=== PATIENT | female | born 1970 | race Caucasian/White ===

== ENCOUNTER 2021-07-08 17:30 | Emergency (ER) | payer OTHER, SELFPAY ==
[2021-07-08 17:45] VITALS: BP 110/69; PULSE 74; RESP 16; TEMP 36.6; O2SAT 97
--- NOTE | 2021-07-08 18:06 | ED.SKABFB ---
HPI - Skin/Abscess/Foreign Bdy General Chief complaint: Skin/Abscess/Foreign Body Stated complaint: spider bite History of Present Illness HPI narrative: The patient, previously mostly healthy, presents with skin eruption. Patient states she has about half week history of painful, itchy eruption on her left gluteal area. Symptoms are mild, slightly worse with sitting or palpation-especially at central scab/crusting. She is concerned that she may have had a spider bite as it began quickly,when seated 4 days ago then. She would like refill of inhaler ; no fever, prior/other rashes, streaking but there is areas of hyperpigmentation/bruising. Related Data Home Medications Medication Instructions Recorded Confirmed albuterol 1 mcg INHALATION PRN PRN 07/08/21 07/08/21 ibuprofen 200 mg PO Q6H PRN 07/08/21 07/08/21 Allergies Allergy/AdvReac Type Severity Reaction Status Date / Time Sulfa (Sulfonamide AdvReac Mild Nausea Verified 07/08/21 18:01 Antibiotics) Review of Systems Review of Systems: General/Constitutional: No weight loss,fever Eyes: N0: Redness,discharge Ears/Nose/Throat: No: Epistaxis,ear discharge Respiratory: Denies: Hemoptysis Gastrointestinal: No Vomiting, Bleeding-rectal Skin: No Lumps, eruption Neurologic: No Focal Weakness,Sz Hematologic: Denies: Petechiae/Purpura Psychiatric: No: Suicida ideationl All Other Systems: Reviewed and Negative PMFSH Comments At time of signature, agree with nursing past medical, surgical, social and family history. There is no relevant family history pertinent to the presenting complaint Exam Narrative: General Appearance: Well nourished, Normocephalic Eye: PERRLA, Conjunctiva clear Ear: External ear normal Nose: Normal nose, Nare clear Mouth/Throat: Normal appearing, Supple Respiratory: Airway patent, No respiratory distress Musculoskeletal: Moves all extremities, Non tender Skin: Warm, Dry; palm-sized area of hyperpigmentation with central maculo papular eruption of left gluteal crease Neurological: A&O x3, Normal affect Course Vital Signs Vital signs: Vital Signs Temperature 97.8 F 07/08/21 17:45 Pulse Rate 74 07/08/21 17:45 Respiratory Rate 16 07/08/21 17:45 Blood Pressure 110/69 07/08/21 17:45 Pulse Oximetry 97 10/28/21 17:45 Temperature 97.8 F 07/08/21 17:45 Pulse Rate 74 07/08/21 17:45 Respiratory Rate 16 07/08/21 17:45 Blood Pressure 110/69 07/08/21 17:45 Pulse Oximetry 97 07/08/21 17:45 Discharge Plan Discharge Clinical Impression: Folliculitis Patient Disposition: Home, Self-Care Condition: Stable Instructions: Cellulitis (ED) Additional Instructions: Take clindamycin with food, antacid and/or probiotic; stop if diarrhea occurs Continue photo log of area Prescriptions: New clindamycin HCl 300 mg capsule 300 mg PO TID Qty: 15 RF: 0 mupirocin 2 % ointment 1 applic TOPICAL TID Qty: 30 RF: 1 albuterol sulfate [Ventolin HFA] 90 mcg/actuation HFA aerosol inhaler 2 puff INHALATION QID PRN (Reason: shortness of breath or wheezing) Qty: 8.5 RF: 1 No Action albuterol 90 mcg/actuation Aerosol 1 mcg INHALATION PRN PRN (Reason: difficulty breathing) RF: 0 ibuprofen 200 mg Tablet 200 mg PO Q6H PRN (Reason: headaches) RF: 0 Follow-up/Referrals: UNKNOWN,DOCTOR [Primary Care Provider] -
== END 2021-07-08 18:15 | disposition home or self-care (01) ==
PROVIDERS: Emergency Provider Emergency Medicine
DX: L73.9 Follicular disorder, unspecified (principal); J45.909 Unspecified asthma, uncomplicated
CPT/HCPCS: 99203; G0463

== ENCOUNTER 2021-11-11 02:22 | Day surgery (SDC) | payer SELFPAY ==
[2021-11-05 14:02] VITALS: BMI 22.7
--- NOTE | 2021-11-05 14:11 | PC.NURSE ---
Report to the Outpatient Waiting Room, entrance under the green pavilion located off [facility], at time 1230 on date 11/11/21. OR Time: 1430. - You and your visitor will be asked a series of questions to screen for COVID 19 for your protection. - A mask is required within the hospital. One visitor will be allowed to accompany the patient into the hospital. Patients visitor will be instructed to remain with patient at all times or leave the building. We will allow the visitor to come back to the postoperative area when patient is ready. Preoperative COVID Testing Requirements: TO E-MAIL COPY OF CARD No COVID Test needed if: (proof is required; if not received patient will have Rapid Test prior to entry) - Patient has received COVID Vaccine at least 14 days prior to procedure date or - Patient has positive COVID test result within last 90 days of surgery date. COVID Test needed if above criteria is not met Patients may have clear liquids (water, carbonated beverages, clear teas, apple juice) until 3 hours prior to surgery with a maximum of 20 ounces. - No food from midnight until time of surgery Take the following medications with a SIP of water the morning of surgery: ALBUTEROL IF NEEDED Medications to discontinue per physician: N/A Date to take last dose: N/A Please no make-up, nail hebrew, hairspray, perfume, deodorant, or body powder the day of surgery. No jewelry (including any body piercings) or valuables the day of surgery, leave them at home. Please take a shower or bath the night before, or the morning of, surgery with an antibacterial soap. Wear comfortable, loose fitting clothing. - Jewelry must be removed prior to entering the operating room. Rings and piercings that are not removed may be cut off. - The hospital will not accept responsibility for valuables. - Please leave all valuables, including medications, at home the day of surgery. If you are going home after surgery, a licensed stunt driver must drive you home. - NO public transportation without another adult. - We recommend that an adult stay with you for 24 hours following discharge. - We also recommend that you do not drive, make important decision, drink alcoholic beverages, or take any drugs that were not prescribed by your health care provider for at least 24 hours after your discharge time. Follow any additional instructions given to you from your surgeon. Telephone instructions given to LEX NUNES and asked if any additional questions and then verbalized understanding. Patient advised to call surgeon office or pre surgery nurse liaison [phone] if any additional questions.
[2021-11-11] VITALS (10 sets, daily range): BP systolic 100–135; BP diastolic 45–75; PULSE 44–63; RESP 10–20; TEMP 35.8–36.7; O2SAT 97–100
--- NOTE | ~2021-11-11 | XR_ITS ---
EXAMINATION: XR surgery orthopedic EXAM DATE: 11/11/2021 11:20 INDICATION: Closed Or Open Reduc Internal Fixation Rt Ring Finger. TECHNIQUE: Fluoroscopy used during right 4th proximal phalangeal fixation performed by Dr. Rizwan Grayson MD. Radiologist was not present for the imaging or procedure. Total fluoroscopic time of 15 5 seconds. The DAP for this procedure was 0.55 mGym2. A total of 4 images sent to PACS from the [facility]. FINDINGS: Images demonstrate a 4th proximal phalangeal shaft fracture in anatomic alignment and posi tion, 2 small screws bridging the fracture site. Correlate with procedure note. IMPRESSION: Fluoroscopy used during right 4th proximal phalangeal ORIF. Reviewed, dictated and finalized at location B. KING SUPERVISOR
--- NOTE | 2021-11-11 07:14 | WPDHPUPDATE1 ---
History and Physical Update Update Date/Time: 11/11/21 07:14 History and Physical has been reviewed, including an updated exam of the patient. There are NO changes in the patient's condition. Risks, benefits, and alternatives have been discussed and questions answered. Patient agrees to proceed with procedure.
--- NOTE | 2021-11-11 08:21 | WPDANESEPPF ---
Anes - Initial Pre Proc Eval Procedure: Operation Date: 11/11/21 09:30 Proposed Procedures p Closed or Open Reduction with Internal Fixation, Fracture Proximal Phalanx of Right Ring Finger - Rizwan Grayson MD Date/Time: 11/11/21 08:21 Surgeon: Rizwan Grayson MD Pre Op Diagnosis: fracture of proximal phalanx right ring finger Patient Data Age: 50 Gender: F Height: 1.69 m Weight: 64.86 kg Allergies Allergy/AdvReac Type Severity Reaction Status Date / Time Sulfa (Sulfonamide AdvReac Mild Nausea Verified 11/11/21 07:54 Antibiotics) Home Medications Medication Instructions Recorded Confirmed Type albuterol sulfate [Ventolin HFA] 2 puff INHALATION QID PRN #8.5 gm 07/08/21 11/05/21 Rx ibuprofen 200 mg PO Q6H PRN 07/08/21 11/05/21 History Patient hx anesthesia problems: post op nausea/vomiting Family hx anesthesia problems: none Results Review: All pre-operative results and documents have been reviewed as part of the pre-operative evaluation. FOR[facility]LY [facility] Past Medical History Medical History (Updated 11/11/21 @ 08:22 by Burt Hein DO) Asthma Hiatal hernia PONV (postoperative nausea and vomiting) Social History Social History Smoking packs per day: 1 Smoking cigarettes per day: 20.0 Years smoked: 30 Smoking pack-years: 30.00 Smoking status: Former smoker Tobacco type: cigarettes Smoking end date: 05/12/19 Alcohol intake: never Substance use: current Substance use type: marijuana Living arrangements: with family Anes - Eval Final PreProcedure Day of Procedure 11/11/21 08:21 Patient weight: normal Heart: regular rate and rhythm Lungs: clear to auscultation and normal air movement Airway: Mallampati scale class II Neurological: alert and oriented Last oral intake: >/= 8 hours ASA classification: III Emergent: no Anesthetic plan: proceed Anesthesia type and monitoring: general GIVS and LMA and standard monitoring Results Review: All pre-operative results and documents have been reviewed as part of the pre-operative evaluation. Informed Consent: The patient's anesthetic plan and its attendant risks and benefits were discussed with the patient/family/POA. Questions were solicited and answers provided to the satisfaction of the patient/family/POA.
[2021-11-11] MEDS: ACETAMINOPHEN 500 MG TABLET 1000 MG PO (08:23)
[2021-11-11] MEDS: LACTATED RINGERS 1,000 ML 30 ML IV CONT ×2 (08:29→11:45)
[2021-11-11] MEDS: SCOPOLAMINE 1.5 MG PATCH TRANSDERM (09:13)
[2021-11-11] MEDS: KETOROLAC 15 MG/ML VIAL (*BKC) IV PUSH (09:13)
[2021-11-11] MEDS: ceFAZolin 2 GM/D5W 50 ML 2 GM/50 ML BAG IVPB (09:49)
--- NOTE | 2021-11-11 12:18 | P.OP_ITS ---
Procedure Note - Detailed Date of Procedure 11/11/21 Pre-op Diagnosis fracture of proximal phalanx right ring finger Post-op Diagnosis Same Procedure Performed Open reduction internal fixation of the closed extra-articular shaft fracture of the proximal phalanx of right ring finger Surgeon Rizwan Grayson MD Health And Wellness Director Luisa Anesthesia General Description of Procedure The right ring finger was marked in the holding area. The patient was then rolled to the operating room where she was placed supine on the operating table. A time-out was held and confirmed. She was given general endotracheal anesthesia. The right upper extremity was prepped and draped in usual fashion. The hand was imaged on the table and the fracture manipulated. This was the 2 fragment spiral fracture without comminution. By closed technique we were not able to satisfactorily reduce it and define the orientation of the fracture lines. For that reason we elected to open. The digit was blocked with 1% lidocaine with epinephrine. The dorsal midline incision was made and the extensor tendon incised down the midline. The fracture lay in part directly under this access point. We were able to do reduction and apply a tenaculum. A 1.5 mm lag screw was placed diagonal to the fracture line this is a 12 mm screw was countersunk and imaged. This stabilized the fracture in excellent position. A 2nd screw was placed roughly parallel. This a bicortical screw measuring 1.3 x 11 mm. The tendon was then repaired with interrupted 5 0 Prolene suture. The site was irrigated out and the skin wound closed with a running 5 0 nylon. No splint was applied. The soft gauze with Coban wrap bandage was applied. The patient was discharged from the operating room in stable condition. She had received Ancef 2 g prior to the surgery the total tourniquet time was 57 minutes, she received Tylenol 1000 mg p.o. and Toradol 15 mg p.o.. about 8 mm of Marcaine 5% plain was also infiltrated. Implants Titanium screws: x2. Estimated Blood Loss 2 Tourniquet Time 57 Drains No Packing No Pathology None sent Complications No immediate complications Condition Stable Disposition PACU
--- NOTE | 2021-11-11 13:03 | SUR.PHASEI ---
PT NOW AWAKE AND ALERT. STATES MODERATE ACHINESS AT 6/10. PT DOES NOT WANT PAIN MEDICINE AT THIS TIME
== END 2021-11-11 15:07 | disposition home or self-care (01) ==
PROVIDERS: Visit Provider Plastic Surgery
PROC: (CPT 26735; principal; 2021-11-11 09:30)
DX: S62.614A Displaced fracture of proximal phalanx of right ring finger, initial encounter for closed fracture (principal); W54.8XXA Other contact with dog, initial encounter; J45.909 Unspecified asthma, uncomplicated; K44.9 Diaphragmatic hernia without obstruction or gangrene; Z79.51 Long term (current) use of inhaled steroids; Z87.891 Personal history of nicotine dependence; F12.90 Cannabis use, unspecified, uncomplicated
CPT/HCPCS: 26735; A9270; C1713; J0690; J1100; J1885; J1940; J2250; J2270; J2405; J2704; J7120

== ENCOUNTER 2021-11-25 14:05 | Outpatient (RCR) | payer SELFPAY ==
--- NOTE | 2021-11-25 15:03 | OTOPEVAL ---
OCCUPATIONAL THERAPY INITIAL EVALUATION REPORT AND DISCHARGE SUMMARY 11/25/21 Kay referred to outpatient hand therapy following a ring finger fracture s/p ORIF. She is only here for 1 visit due to being self pay. Instructed the patient today on active/passive ROM HEP as well as how to progress to strengthening in 2 weeks. Educated on the importance of daily compliance as well as doing the exercises as much as possible throughout the day, up to 8 times a day. She demonstrates excellent understanding of all materials and is ready for discharge. Thank you for referring Kay Glaser to [facility].?Please review, sign, date and return this note ROSEMARIE. I agree with and certify that the following plan of care is medically necessary. Referring Physician Date Referring Provider: Rizwan Grayson MD *OT Outpatient Evaluation Start: 11/25/21 14:12 Outpatient Past Medical History Past Medical History Source of Past Medical History Recalled from Previous Visit, Confirmed with Patient/Family Neurological History Hx Migraine Yes Cardiovascular History Hx Heart Murmur Yes: AN (RESOLVED) Respiratory History Hx Asthma Yes Hx COVID-19 Yes: 06/2020 - MILD COLD SX Gastrointestinal History Hx Hernia Yes: HIATAL Genitourinary History Hx Genitourinary Disorders No Significant History Musculoskeletal History Hx Arthritis Yes Hx Back Pain Yes Hx Fractures Yes: TOE, FINGER Hx Orthopedic Surgery Yes: BILAT FEET AGE 7 (FOR PIGEON-TOE) Hematological History Hx Hematological Disorders No Significant History Endocrine History Hx Endocrine Disorders No Significant History HEENT History Hx HEENT Disorders No Significant History Integumentary History Hx Skin Disorders No Significant History Reproductive History Hx Post Menopausal Yes Psychosocial History Hx Psychiatric Disorders No Significant History Pain History History of Any Previous or Ongoing No Significant History Instance of Pain Anesthesia History Hx Post-Op Nausea/Vomiting Yes Evaluation Information Diagnosis Right ring finger, extra articular shaft fx of proximal phalanx Additional Evaluation Detail ORIF 11/11/21 Subjective Information Patient fractured the shaft of Query Text:As Reported By Patient/ the proximal phalanx of her Family right ring finger when she was holding a dog leash and a dog jerked unexpectedly. She underwent an ORIF x2 weeks ago . She presents today for HEP instruction. She is self pay and is only going to attend 1
== END 2022-02-08 12:47 | disposition home or self-care (01) ==
LOC: ANHOT 14:05
PROVIDERS: Visit Provider Plastic Surgery
DX: Z47.89 Encounter for other orthopedic aftercare (principal)
CPT/HCPCS: 97110; 97165

== ENCOUNTER 2022-02-08 10:45 | Outpatient (CLI) | payer OTHER, SELFPAY ==
--- NOTE | ~2022-02-08 | MMUS_ITS ---
EXAMINATION: MM diag tracey implant BI w peterson, US breast BI complete HISTORY: Left breast lump TECHNIQUE: Full field and spot 3-D tomosynthesis images of both breasts were performed and synthetic 2-D images were generated. CAD analysis was submitted and interpreted. High resolution complete bilat eral breast ultrasound including all 4 quadrants and subareolar areas was performed. COMPARISON: None BREAST PARENCHYMAL COMPOSITION: The breasts are heterogeneously dense, which may obscure small masses . FINDINGS: MAMMOGRAPHIC FINDINGS: Multiple breast masses are suggested, including the following: Status post bilateral augmentation mammoplasty. Approximately 2.5 x 2.7 cm lateral subareolar circumscribed mass of the right breast. Circumscribed 5 mm rounded opacity in the lower outer left breast. 8 mm circumscribed opacity is suggested in the upper mid left breast 2.4 cm deep to the nipple. Additional masses may be obscured by the heterogeneously dense stroma. No architectural distortion is noted. Scattered bilateral benign appearing microcalcifications are noted. No skin thickening or retraction is evident. ULTRASOUND: Right breast: 12:00 near nipple: Bilobed 3.3 x 7.5 x 3.8 mm cyst 1:00 near nipple: Oval tear-shaped 10.4 x 2.6 x 2.6 cm circumscribed sonolucency with through transmi ssion posterior enhancement, compatible with simple cyst 8:00 3 cm from nipple: Parallel circumscribed 6 x 2.7 x 5.5 mm sonolucency, without internal vascular ity or posterior shadowing 9:00 area of concern 4 cm from nipple: Irregular hypoechoic heterogeneous solid lesion measuring 6.2 x 5.8 x 7.8 mm dimension. No internal vascularity or posterior shadowing. The irregular margins are o f concern. Ultrasound-guided biopsy is recommended. Left breast: 12:00 near nipple: 7 x 8.4 x 8.8 mm sonolucency with through transmission consistent with simple cyst 12:00 near nipple: 10 x 8 x 10 mm circumscribed mildly irregular mass with some posterior shadowing, without vascularity on color flow imaging. The mildly irregular margins and some posterior shadowing are suspicious. Ultrasound-guided biopsy is recommended. 1:00 2 cm from nipple: 5.5 x 3.2 x 6.8 mm septated cyst 2:00 2 cm from nipple: Parallel circumscribed hypoechoic 5.9 x 3 x 6.1 mm lesion without internal vas cularity or posterior shadowing, benign in appearance 3:00 8 cm from nipple: Parallel circumscribed 7.9 x 2.6 x 9.3 mm probable benign lymph node 5:00 near nipple: 6 x 4.6 x 5.3 mm circumscribed rounded largely sonolucent lesion with scattered int ernal echoes and with through transmission, likely a complicated cyst IMPRESSION: 1. Right breast: Irregular hypoechoic heterogeneous solid 6.2 x 5.8 x 7.8 mm lesion with irregular ma rgins at 9:00 4 cm from nipple; ultrasound-guided biopsy is recommended 2. Left breast: 10 x 8 x 10 mm circumscribed mildly irregular mass with posterior shadowing at 12:00 near nipple; ultrasound-guided biopsy is recommended BI-RADS category 4, suspicious findings. Dr. Chauhan telephoned the report and ultrasound guided biopsy recommendations on 02/08/2022 at 1550 hour s to [place] Reviewed, dictated and finalized at location A. IMPRESSION: 1. Right breast: Irregular hypoechoic heterogeneous solid 6.2 x 5.8 x 7.8 mm le edgar with irregular margins at 9:00 4 cm from nipple; ultrasound-guided biopsy is recommended 2. Left breast: 10 x 8 x 10 mm circumscribed mildly irregular mass with posteri or shadowing at 12:00 near nipple; ultrasound-guided biopsy is recommended BI-RADS category 4, suspicious findings. Dr. Chauhan telephoned the report and ultrasound guided biopsy recommendations on 02/08/2022 at 1550 hours to [facility]
== END 2022-02-08 10:46 | disposition home or self-care (01) ==
LOC: ANHIMG 10:50
PROVIDERS: Visit Provider Advanced Practice Midwife
DX: N63.0 Unspecified lump in unspecified breast (principal); R92.8 Other abnormal and inconclusive findings on diagnostic imaging of breast
CPT/HCPCS: 76641; 77062; 77066; G0279

== ENCOUNTER 2022-04-09 08:25 | Emergency (ER) | payer MEDICAID, SELFPAY ==
--- NOTE | ~2022-04-09 | CT_ITS ---
EXAMINATION: CT abdomen pelvis w con DATE: 04/09/2022 09:34 INDICATION: Abdominal pain TECHNIQUE: Computed tomography (CT) of the abdomen and pelvis was performed with 100 mL Omnipaque-300 intravenous contrast. Automated exposure control and iterative reconstruction technique were employe d. The dose-length product was 323.71 mGy-cm. COMPARISON: None FINDINGS: Lung bases are clear. Heart size is normal. No pericardial or pleural effusion. 2.3 cm right hepatic lobe mass which is hypodense/hypoenhancing relative to the surrounding parenchyma. Gallbladder, splee n, pancreas, bilateral adrenal glands and kidneys are normal. Normal appendix. There is edematous wal l thickening of the colon primarily at the transverse and proximal descending colon consistent with c olitis. No pneumatosis, abscess or free intraperitoneal gas or fluid. Small bowel is normal. No bowel obstruction. Bladder, anteverted uterus and bilateral adnexa are unremarkable aside from dilated lef t-sided parametrial veins and left gonadal vein which can be seen with pelvic vascular congestion syn drome.. No pathologically enlarged abdominal or pelvic lymphadenopathy. Bones are unremarkable. IMPRESSION: 1. Colitis which could be infectious, inflammatory or ischemic in etiology. 2. Indeterminate 2.3 cm mass in the right hepatic lobe scattered benign, malignant or infectious etio logies. Would recommend further evaluation with pre and postcontrast MRI or CT. Reviewed, dictated and finalized at location A. IMPRESSION: 1. Colitis which could be infectious, inflammatory or ischemic in etiology. 2. Indeterminate 2.3 cm mass in the right hepatic lobe scattered benign, malign ant or infectious etiologies. Would recommend further evaluation with pre and p ostcontrast MRI or CT.
[2022-04-09 08:25] VITALS: BP 127/75; PULSE 61; RESP 16; TEMP 36.4; O2SAT 100
[2022-04-09 09:00] LABS: Basophils Absolute Auto 0.1 K/mm3 (0.0-0.1); Basophils Percent Auto 0.6 % (0.2-1.2); Eosinophils Percent Auto 0.3 % (0-4.4); Hematocrit 36.8 % (37.0-47.0); Hemoglobin 11.8 g/dL (12.0-15.0); Immature Granulocyte Absolute 0.04 K/mm3 (0.00-0.031); Immature Granulocyte Percent A 0.3 % (0-0.5); Lymphocytes Absolute Auto 1.15 K/mm3 (0.9-3.2); Lymphocytes Percent Auto 9.7 % (18.3-44.2); Mean Corpuscular HGB Conc 32.1 g/dl (32-36); Mean Corpuscular Hemoglobin 30.3 pg (26-34); Mean Corpuscular Volume 94.6 fl (80-100); Mean Platelet Volume 11.3 fl (7.4-10.4); Monocytes Absolute Auto 0.6 K/mm3 (0.1-0.6); Monocytes Percent Auto 5.2 % (2.6-8.5); Neutrophils Percent Auto 83.9 % (45.5-73.1); Platelet Count Result 171 k/mm3 (150-375); Red Blood Count 3.89 M/mm3 (4.2-5.4); Red Cell Distribution Width 13.4 % (11.5-14.5); White Blood Count 11.9 K/mm3 (4.5-10.0)
[2022-04-09 09:10] LABS: Alanine Aminotransferase 16 U/L (6-35); Albumin Level 4.1 g/dL (3.5-5.1); Alkaline Phosphatase 51 U/L (38-126); Anion Gap 7 mmol/L (8-16); Aspartate Amino Transferase 21 U/L (14-36); Bilirubin,Total 0.5 mg/dL (0.2-1.3); Blood Urea Nitrogen 18 mg/dL (7-17); Calcium 8.3 mg/dL (8.4-10.2); Carbon Dioxide 27 mmol/L (22-30); Chloride 105 mmol/L (98-107); Estimated Glomerular Filt Rate > 60; Glucose 128 mg/dL (65-110); Lipase 80 U/L (23-300); Potassium 3.5 mmol/L (3.4-5.0); Sodium 139 mmol/L (137-145)
[2022-04-09 09:22] LABS: Appearance Urine Clear (Clear); Bilirubin Urine Negative (Negative); Color Urine Yellow (Yellow); Glucose Urine UA Negative (Negative); Ketones Urine Negative (Negative); Leukocyte Esterase Ur Negative LEU/UL (Negative); Nitrate Urine Negative (Negative); Protein Urine Negative (Negative); Urobilinogen Urine 0.2 mg/dL (<2.0); pH Urine 8.5 (5.0-9.0)
[2022-04-09 09:27] LABS: Add Urine Microscopic? YES; Blood Urine Trace-Intact (Negative)
[2022-04-09 09:36] LABS: Amorphous Sediment Urine Few; Bacteria Urine Trace /hpf; Mucus Urine Rare /lpf; Squamous Epithelial Cell Urine Rare /hpf (Few); WBC Urine 0-3 /hpf
[2022-04-09] MEDS: SODIUM CHLORIDE 0.9% IV 1,000 ML 999 ML IV CONT (09:42)
[2022-04-09] MEDS: ONDANSETRON INJ 4 MG/2 ML VIAL IV PUSH (09:42)
--- NOTE | 2022-04-09 09:42 | ED.ABDPAIN ---
HPI - Abdominal Pain General Chief Complaint: Abdominal Pain Stated Complaint: ABD PAIN, N/V/D Time Seen by Provider: 04/09/22 08:33 Source: RN notes reviewed History of Present Illness HPI narrative: Patient presents emergency department from home for abdominal pain. Patient states symptoms began approximately 4 AM this morning. Abdominal pain is diffuse throughout the abdomen and radiates in the upper abdomen described as sharp and stabbing nature associated with nausea and vomiting. Patient denies having any diarrhea she denies any fevers or chills chest pain or shortness of breath. Patient states she not taking medication for the symptoms at home. States she did just have a lumpectomy procedure performed at [facility] in [place] on Monday Related Data Home Medications Medication Instructions Recorded Confirmed ibuprofen 200 mg tablet 200 mg PO Q6H PRN headaches 07/08/21 11/11/21 Allergies Allergy/AdvReac Type Severity Reaction Status Date / Time Sulfa (Sulfonamide AdvReac Mild Nausea Verified 04/09/22 08:31 Antibiotics) Review of Systems Review of Systems: Gen.: Denies fevers or chills ENT: Denies congestion Respiratory: Denies shortness of breath or cough CV: Denies chest pain or palpitations GI: See HPI Musculoskeletal: Denies back pain or muscle pain Neuro: Denies numbness, tingling, weakness or focal weakness Skin: Denies rash Except as documented, all other systems reviewed and negative [facility] Past Medical History Medical History Asthma Hiatal hernia PONV (postoperative nausea and vomiting) Social History Social History Smoking packs per day: 1 Smoking cigarettes per day: 20.0 Years smoked: 30 Smoking pack-years: 30.00 Smoking status: Former smoker Tobacco type: cigarettes Smoking end date: 05/12/19 Alcohol intake: never Substance use: current Substance use type: marijuana Exam Narrative: APPEARANCE: No acute distress, nontoxic, resting in bed HEENT: Normocephalic, atraumatic, OMM RESPIRATORY: No respiratory distress, clear to auscultation bilaterally with no rhonchi wheezing or rales CARDIOVASCULAR: RRR s murmur ABDOMINAL: Soft nondistended diffusely tender palpation no rebound or guarding MUSCULOSKELETAl: Moves all extremities. No clubbing, cyanosis or edema. NEURO: Awake and alert. Following commands, speech normal, no focal deficits SKIN:: Warm, dry. Normal Color PSYCHIATRIC: Normal affect/mood Course Course Emergency Course: Patient states she is feeling much better at this time. Discussed with the patient her CT scan of her abdomen pelvis discussed the colitis we also discussed her lesion seen in her liver the patient was just diagnosed with a mammogram of possible breast cancer and had a biopsy performed on Monday of this past week at [place] she states the margins are clear and she is post be following up with oncology in 2 weeks at [place]'s [address] Lackey. States she has had a previous history of a hemangioma in her liver and I did discuss with Dr. Lyn states that the CT could not be hemangioma but she would need comparisons to previous films I discussed this with the patient discussed that she will also need to bring this up with her oncologist as she needs to be ruled out for hemangioma versus possible metastatic disease Discussed with Dr. Mcguire presentation work-up agrees plan for Cipro and Flagyl home with follow-up as an outpatient Patient states that they are feeling much better at this time. States abdominal pain has resolved. Repeat abdominal exam shows the patient's abdomen to be soft and nontender. Discussed with patient results of workup and diagnosis. Discussed need for follow-up with primary care physician, reasons to return to the emergency department in proper use of medication. Patient understands and agrees
[2022-04-09] MEDS: KETOROLAC 30 MG/ML VIAL (*BKC) IV PUSH (09:43)
[2022-04-09 10:28] LABS: Lactic Acid Reflex 1.9 mmol/L (0.7-2.0)
[2022-04-09] MEDS: CIPROFLOXACIN 500 MG TAB PO (11:32)
[2022-04-09] MEDS: metroNIDAZOLE 250 MG TABLET 500 MG PO (11:32)
== END 2022-04-09 11:54 | disposition home or self-care (01) ==
PROVIDERS: Emergency Provider Emergency Medicine
DX: K52.9 Noninfective gastroenteritis and colitis, unspecified (principal); J45.909 Unspecified asthma, uncomplicated; Z87.891 Personal history of nicotine dependence; R16.0 Hepatomegaly, not elsewhere classified
CPT/HCPCS: 36415; 74177; 80053; 81001; 81025; 83605; 83690; 85025; 96361; 96374; 96375; 99284; A9270; J1885; J2405; J7030; Q9967

== ENCOUNTER 2022-04-10 19:15 | Inpatient (IN) | payer MEDICAID, SELFPAY ==
[2022-04-10 19:20] VITALS: BP 139/73; PULSE 58; RESP 16; TEMP 36.5; O2SAT 99
--- NOTE | 2022-04-10 19:52 | ED.NAVMDI ---
HPI - Nausea/Vomiting/Diarrhea General Chief complaint: Nausea/Vomiting/Diarrhea Stated complaint: n/v Time Seen by Provider: 04/10/22 19:33 History of Present Illness HPI Narrative: Patient is a 51-year-old female complaining of nausea and vomiting, nonbilious nonbloody accompanied by blood in her stools and lower abdominal discomfort that started 3 days ago. Patient was seen here yesterday for similar complaints, had labs and CT scan of her abdomen pelvis done, diagnosed with colitis and discharged home. Patient was placed on oral antibiotics but unable to take them because of her nausea and vomiting. Patient states that she is not any better and that is why she is back. Related Data Home Medications Medication Instructions Recorded Confirmed ibuprofen 200 mg tablet 200 mg PO Q6H PRN headaches 07/08/21 11/11/21 Allergies Allergy/AdvReac Type Severity Reaction Status Date / Time Sulfa (Sulfonamide AdvReac Mild Nausea Verified 04/10/22 19:22 Antibiotics) Review of Systems Review of Systems: All systems reviewed & are unremarkable except as noted in HPI and below Constitutional: Constitutional: Denies body ache(s), Denies chills, Denies excessive sweating, Denies fatigue, Denies fever(s), Denies headache(s), Denies lethargy, Denies malaise, Denies weakness and Denies weight loss Eyes: Eyes: Denies blurry vision, Denies change in vision and Denies loss of vision ENT: Denies dizziness, Denies ear discharge, Denies headache(s), Denies lip swelling, Denies epistaxis, Denies nasal congestion, Denies neck pain, Denies throat swelling and Denies tongue swelling Cardiovascular: Cardiovascular: Denies chest pain, Denies chest pain at rest, Denies chest pain with activity, Denies diaphoresis, Denies rapid heart rate, Denies edema, Denies irregular heart rhythm, Denies lightheadedness, Denies palpitations, Denies dyspnea and Denies dyspnea on exertion Respiratory: Respiratory: Denies chest congestion, Denies cough, Denies hemoptysis, Denies dyspnea and Denies dyspnea on exertion Gastrointestinal: Gastrointestinal: Denies melena, Denies hematochezia and Denies hematemesis Musculoskeletal: Musculoskeletal: Denies abnormal gait, Denies deformity, Denies joint swelling, Denies limited range of motion, Denies neck pain and Denies numbness Neurologic: Denies Abnormal speech present, Denies abnormal gait, Denies confusion, Denies dizziness, Denies headache(s), Denies focal weakness, Denies loss of vision, Denies numbness, Denies Other visual disturbances, Denies Sensory deficit (Neuro) and Denies weakness Psychiatric: Psychiatric: Denies confusion, Denies depression, Denies auditory hallucinations, Denies homicidal ideation and Denies suicidal ideation Endocrine: Endocrine: Denies cold intolerance, Denies excessive sweating, Denies fatigue, Denies heat intolerance and Denies palpitations Hematologic/Lymphatic: Hematologic/Lymphatic: Denies easy bleeding and Denies easy bruising Allergic/Immunologic: Allergic/Immunologic: Denies lip swelling, Denies throat swelling and Denies tongue swelling PMFSH Past Medical History Medical History Asthma Hiatal hernia PONV (postoperative nausea and vomiting) Social History Social History Smoking packs per day: 1 Smoking cigarettes per day: 20.0 Years smoked: 30 Smoking pack-years: 30.00 Smoking status: Former smoker Tobacco type: cigarettes Smoking end date: 05/12/19 Alcohol intake: never Substance use: current Substance use type: marijuana Exam Const: General: cooperative, healthy appearing, comfortable, no acute distress, well developed, alert and awake; No confusion Orientation/consciousness: oriented to person, oriented to place, oriented to time, patient oriented x3 and No confusion Limitations: no limitations HENMT: Head: normal to inspection, normo
[2022-04-10 19:58] LABS: Basophils Absolute Auto 0.1 K/mm3 (0.0-0.1); Basophils Percent Auto 0.8 % (0.2-1.2); Eosinophils Absolute Auto 0.1 K/mm3 (0-0.3); Eosinophils Percent Auto 0.9 % (0-4.4); Hematocrit 36.3 % (37.0-47.0); Hemoglobin 11.8 g/dL (12.0-15.0); Immature Granulocyte Absolute 0.03 K/mm3 (0.00-0.031); Immature Granulocyte Percent A 0.3 % (0-0.5); Lymphocytes Absolute Auto 1.63 K/mm3 (0.9-3.2); Lymphocytes Percent Auto 18.7 % (18.3-44.2); Mean Corpuscular HGB Conc 32.5 g/dl (32-36); Mean Corpuscular Hemoglobin 30.6 pg (26-34); Mean Platelet Volume 11.4 fl (7.4-10.4); Monocytes Absolute Auto 0.8 K/mm3 (0.1-0.6); Monocytes Percent Auto 8.7 % (2.6-8.5); Neutrophils Absolute Auto 6.2 K/mm3 (1.3-6.7); Neutrophils Percent Auto 70.6 % (45.5-73.1); Platelet Count Result 178 k/mm3 (150-375); Red Blood Count 3.86 M/mm3 (4.2-5.4); Red Cell Distribution Width 13.5 % (11.5-14.5); White Blood Count 8.7 K/mm3 (4.5-10.0)
[2022-04-10] MEDS: ONDANSETRON INJ 4 MG/2 ML VIAL IV PUSH (20:09)
[2022-04-10] MEDS: SODIUM CHLORIDE 0.9% IV 1,000 ML 999 ML IV CONT (20:09)
[2022-04-10 20:10] LABS: Alanine Aminotransferase 14 U/L (6-35); Albumin Level 4.2 g/dL (3.5-5.1); Alkaline Phosphatase 51 U/L (38-126); Anion Gap 7 mmol/L (8-16); Aspartate Amino Transferase 20 U/L (14-36); Bilirubin,Total 0.8 mg/dL (0.2-1.3); Blood Urea Nitrogen 12 mg/dL (7-17); Calcium 8.7 mg/dL (8.4-10.2); Carbon Dioxide 27 mmol/L (22-30); Chloride 105 mmol/L (98-107); Estimated CRCL calculation 92 ml/min; Estimated Glomerular Filt Rate > 60; Glucose 106 mg/dL (65-110); Lipase 63 U/L (23-300); Potassium 3.7 mmol/L (3.4-5.0); Sodium 139 mmol/L (137-145)
--- NOTE | 2022-04-10 20:56 | PM.IMHP ---
H&P: HPI History of Present Illness Date/Time: 04/10/22 20:56 Chief Complaint: Left lower quadrant pain Narrative: This is a 51-year-old female with past medical history significant for asthma, hiatal hernia, former smoker, breast CA status post lumpectomy just recently. Patient presents to the emergency room due to diffuse abdominal pain for the last 2 days or so, nausea, vomiting, constipation, alternating with small bowel movements, blood in the bowel movements as well as phlegm had some chills but unable to tell if fevers, has not been able to eat, patient was at the emergency room the day prior and sent home with oral course of antibiotics however returned today due to worsening pain which is now localized to the left lower quadrant. Preliminary workup was significant for CT OF ABDOMEN AND PELVIS Colitis which could be infectious, inflammatory or ischemic in etiology.2. Indeterminate 2.3 cm mass in the right hepatic lobe scattered benign, malignant or infectious etiologies. Would recommend further evaluation with pre and postcontrast MRI or CT. Review of Systems Review of Systems: abdominal pain, nausea, vomiting, constipation, bloody bowel movement, chills. Constitutional: Constitutional: Reports chills, Reports malaise, Denies night sweats and Reports poor appetite Eyes: Eyes: Denies change in vision ENT: Denies dysphagia, Denies vertigo, Denies dizziness and Denies odynophagia Cardiovascular: Cardiovascular: Denies chest pain, Denies syncope, Denies irregular heart rhythm, Denies lightheadedness, Denies palpitations and Denies dyspnea on exertion Respiratory: Respiratory: Denies chest congestion, Denies cough and Denies excessive phlegm production Gastrointestinal: Gastrointestinal: Reports abdominal pain, Reports change in stool character, Reports constipation, Denies dyspepsia, Denies heartburn, Reports loose stools, Reports nausea and Reports vomiting Genitourinary: Genitourinary: Denies dysuria Musculoskeletal: Musculoskeletal: Denies back pain, Denies arthralgias, Denies joint swelling and Denies muscle weakness Integumentary/Breasts: Skin/Breast: Denies rash Neurologic: Denies vertigo, Denies dizziness, Denies focal weakness and Denies Sensory deficit (Neuro) Psychiatric: Psychiatric: Reports no additional psychiatric complaints and Reports as per HPI Endocrine: Endocrine: Denies cold intolerance, Denies fatigue, Denies flushing, Denies heat intolerance, Denies polyphagia, Denies polydipsia and Denies palpitations Hematologic/Lymphatic: Hematologic/Lymphatic: Reports no additional hematologic/lymphatic complaints and Reports as per HPI Allergic/Immunologic: Allergic/Immunologic: Reports no additional allergic/immunologic complaints and Reports as per HPI PMFSH Past Medical History Medical History Asthma Hiatal hernia PONV (postoperative nausea and vomiting) Social History Social History Smoking packs per day: 1 Smoking cigarettes per day: 20.0 Years smoked: 30 Smoking pack-years: 30.00 Smoking status: Former smoker Tobacco type: cigarettes Smoking end date: 05/12/19 Alcohol intake: never Substance use: current Substance use type: marijuana Spiritual care concerns: No Meds Home Medications and Allergies Home Medications Medication Instructions Recorded Confirmed Type albuterol sulfate 90 mcg/actuation 2 puff inhalation QID PRN 07/08/21 04/10/22 Rx aerosol inhaler (Ventolin HFA) shortness of breath or wheezing #8.5 grams ibuprofen 200 mg tablet 200 mg PO Q6H PRN headaches 07/08/21 04/10/22 History hydrocodone 5 mg-acetaminophen 325 1 tablet PO Q6H PRN pain #8 tabs 11/11/21 04/10/22 Rx mg tablet ciprofloxacin HCl 500 mg tablet 500 mg PO Q12H #20 tabs 04/09/22 04/10/22 Rx (Cipro) famotidine 20 mg tablet (Pepcid AC) 20 mg PO DAILY #14 tabs 04/09/22 0
[2022-04-10 21:01] VITALS: BP 128/72; BP 133/78; PULSE 67; PULSE 69
[2022-04-10 21:03] LABS: Appearance Urine Clear (Clear); Bilirubin Urine Negative (Negative); Blood Urine 1+ (Negative); Color Urine Yellow (Yellow); Glucose Urine UA Negative (Negative); Ketones Urine 2+ mg/dL (Negative); Leukocyte Esterase Ur Negative LEU/UL (Negative); Nitrate Urine Negative (Negative); Protein Urine Negative (Negative); Urobilinogen Urine 0.2 mg/dL (<2.0)
[2022-04-10 21:04] VITALS: BP 140/84; PULSE 72
[2022-04-10 21:07] LABS: Mucus Urine Rare /lpf; Squamous Epithelial Cell Urine Occasional /hpf (Few); WBC Urine 0-3 /hpf
[2022-04-10 21:08] LABS: Add Urine Microscopic? YES
[2022-04-10 21:19] LABS: Pregnancy On Board Control Positive; Urine Pregnancy Test Negative
[2022-04-10 21:23] VITALS: BP 127/75; PULSE 71; RESP 18; O2SAT 99
[2022-04-10 21:50] LABS: SARS-CoV-2 RNA PCR Negative
[2022-04-10 22:31] VITALS: BP 130/75; PULSE 64; RESP 18; O2SAT 98
[2022-04-10 23:02] VITALS: BMI 22.4
[2022-04-10 23:06] VITALS: BP 129/75; PULSE 62; RESP 20; TEMP 36.2; O2SAT 98
[2022-04-10] MEDS: LACTATED RINGERS 1,000 ML 125 ML IV CONT (23:13)
[2022-04-11] MEDS: metroNIDAZOLE 500 MG/ISO 100ML 500 MG/100 ML BAG 100 MG IVPB ×3 (03:02→20:46)
[2022-04-11] MEDS: ONDANSETRON INJ 4 MG/2 ML VIAL IV PUSH ×2 (03:51→18:48)
[2022-04-11 04:38] VITALS: BP 109/57; PULSE 65; RESP 18; TEMP 36.2; O2SAT 99
[2022-04-11] MEDS: methylPREDNISolone SOD SUCC 125 MG VIAL IV PUSH ×2 (05:55→12:20)
--- NOTE | 2022-04-11 09:45 | PM.IMPN ---
Progress Note: A&P Assessment and Plan (1) Colitis: Code(s): K52.9 - Noninfective gastroenteritis and colitis, unspecified Status: Acute Assessment and Plan: started on systemic steroids Flagyl plus levofloxacin supportive care GI consult (2) Nausea & vomiting: Code(s): R11.2 - Nausea with vomiting, unspecified Status: Acute Assessment and Plan: NPO supportive care (3) Breast CA: Code(s): C50.919 - Malignant neoplasm of unspecified site of unspecified female breast Status: Acute Assessment and Plan: patient just recently underwent lumpectomy follow-up in outpatient setting (4) Liver mass: Code(s): R16.0 - Hepatomegaly, not elsewhere classified Status: Acute Assessment and Plan: will do liver MRI Plan # Diffuse abdominal pain for 2 days / Blood in stool # Colitis infectious inflammatory or ischemic. however given the scenario lean toward ischemic colitis more. Continue IV hydration. Continue Levaquin Flagyl for possible infectious colitis. CT done on 04/09/2022 Started on systemic steroid for possible inflammatory bowel disease. GI has been consulted await their recommendations. fail outpatient treatment recently. Lactic acid normal. Lipase normal LFT normal continue IV hydration for possible ischemic colitis due to location colitis. Stool studies if possible. There is also dilated left-sided parametrial veins left gonadal vein which could be seen in pelvic vascular congestion syndrome. suspect less likely to be inflammatory bowel disease. No family history of IBD. No recurrent similar episode in the past.Would prefer to stop steroid await GI recommendations she will Need colonoscopy in near future for further evaluation need this and also for screening purpose. # Right hepatic lobe mass indeterminate 2.[address] recommended. she reports that she already knew this lesion. Will cancel her liver MRI. However does not seem like it is ordered. This is likely a hemangioma # Asthma well controlled # Hiatal hernia # Former smoker # Breast cancer status post lumpectomy this past week # DVT prophylaxis SCDs # code status full code Subjective Date/time seen: 04/11/22 09:45 Interval history: HPI:?This is a 51-year-old female with past medical history significant for asthma, hiatal hernia, former smoker,? breast CA status post lumpectomy just recently.? Patient presents to the emergency room due to diffuse abdominal pain for the last 2 days or so, nausea, vomiting, constipation, alternating with small bowel movements, blood in the bowel movements as well as phlegm had some chills but unable to tell if fevers,? has not been able to eat, patient was at the emergency room the day prior and sent home with oral course of antibiotics however returned today due to worsening pain which is now localized to the left lower quadrant.? Preliminary workup was significant for CT OF ABDOMEN AND PELVIS Colitis which could be infectious, inflammatory or ischemic in etiology.2. Indeterminate 2.3 cm mass in the right hepatic lobe scattered benign, malignant or infectious etiologies. Would recommend further evaluation with pre and postcontrast MRI or CT. 04/11/2022 history reviewed. Left upper quadrant pain and epigastric pain reported had bloody bowel movement Monday and Monday. Nausea but no vomiting has been placed on NPO. Review of Systems Review of Systems: All systems reviewed & are unremarkable except as noted in HPI and below Exam Narrative: GENERAL: The patient is well developed, not in acute distress HEENT: Nonicteric sclerae, PERRLA, EOMI. Oropharynx clear. Moist mucous membranes. Conjunctivae appear well perfused. CHEST: Chest wall is nontender. HEART: Regular rate and rhythm without murmur, rubs, or gallops LUNGS: Clear to auscultation bilaterally. no respiratory distress ABDOMEN: Soft, positive bowel sounds, Tender epigastric and le
[2022-04-11 10:44] LABS: CRP 0.7 mg/dL (<1.0)
[2022-04-11 10:57] LABS: Erythrocyte Sedimentation Rate 14 mm/hr (0-20)
[2022-04-11] MEDS: LACTATED RINGERS 1,000 ML 125 ML IV CONT (12:23)
[2022-04-11 14:00] VITALS: BP 111/62; PULSE 72; RESP 16; TEMP 36.7; O2SAT 97
[2022-04-11] MEDS: ACETAMINOPHEN 500 MG TABLET 1000 MG PO (14:41)
--- NOTE | 2022-04-11 17:04 | WPDGICN ---
Assessment and Plan Assessment and plan (1) Colitis: Code(s): K52.9 - Noninfective gastroenteritis and colitis, unspecified Status: Acute Assessment and Plan: could be infectious vs ischemic (also had bloody stools) on iv antibiotics, doing better no more leukocytosis will need colonoscopy in about 6 weeks after acute process gone (2) Nausea & vomiting: Code(s): R11.2 - Nausea with vomiting, unspecified Status: Acute Assessment and Plan: better CL diet for now (3) Abdominal pain: Code(s): R10.9 - Unspecified abdominal pain Status: Acute Assessment and Plan: improving (4) Leukocytosis: Code(s): D72.829 - Elevated white blood cell count, unspecified Status: Acute Assessment and Plan: resolved (5) Liver lesion: Code(s): K76.9 - Liver disease, unspecified Status: Acute Assessment and Plan: probably benign, normal liver enzymes will check AFP MRI liver at some point GI Consult Note Consult date/time: 04/11/22 17:04 Reason for consult: colitis, abdominal pain, nausea HPI: Kay Glaser is a 51 year old female with past medical history of asthma, hiatal hernia (had EGD several years ago), breast CA status post lumpectomy about 2 weeks ago.?She came here with new onset of nausea, vomiting along with severe diffuse abdominal pain for 2 days, she came to the emergency room and treated then sent home but she came back yesterday again with nausea and similar pain, also noted bloody loose stools. No fever and no sick contacts, never had colonoscopy. CT OF ABDOMEN AND PELVIS reviewed and showed colitis which could be infectious, inflammatory or ischemic in etiology. Indeterminate 2.3 cm mass in the right hepatic lobe. Today still with pain but better. WBC 12, hb 11, normal liver enzymes and esr/crp, covid negative. Started on iv antibiotics. Review of Systems Review of Systems: abdominal pain, nausea, vomiting, constipation, bloody bowel movement, chills. Constitutional: Constitutional: Reports chills, Reports malaise, Denies night sweats and Reports poor appetite Eyes: Eyes: Denies change in vision ENT: Denies dysphagia, Denies vertigo, Denies dizziness and Denies odynophagia Cardiovascular: Cardiovascular: Denies chest pain, Denies syncope, Denies irregular heart rhythm, Denies lightheadedness, Denies palpitations and Denies dyspnea on exertion Respiratory: Respiratory: Denies chest congestion, Denies cough and Denies excessive phlegm production Gastrointestinal: Gastrointestinal: Reports abdominal pain, Reports change in stool character, Reports constipation, Denies dyspepsia, Denies heartburn, Reports loose stools, Reports nausea and Reports vomiting Genitourinary: Genitourinary: Denies dysuria Musculoskeletal: Musculoskeletal: Denies back pain, Denies arthralgias, Denies joint swelling and Denies muscle weakness Integumentary/Breasts: Skin/Breast: Denies rash Neurologic: Denies vertigo, Denies dizziness, Denies focal weakness and Denies Sensory deficit (Neuro) Psychiatric: Psychiatric: Reports no additional psychiatric complaints and Reports as per HPI Endocrine: Endocrine: Denies cold intolerance, Denies fatigue, Denies flushing, Denies heat intolerance, Denies polyphagia, Denies polydipsia and Denies palpitations Hematologic/Lymphatic: Hematologic/Lymphatic: Reports no additional hematologic/lymphatic complaints and Reports as per HPI Allergic/Immunologic: Allergic/Immunologic: Reports no additional allergic/immunologic complaints and Reports as per HPI PMFSH Past Medical History Medical History (Updated 04/11/22 @ 17:12 by Parminder Brumfield MD) Abdominal pain Asthma Hiatal hernia Leukocytosis Liver lesion PONV (postoperative nausea and vomiting) Social History Social History Smoking packs per day: 1 Smoking cigarettes per day: 20.0 Ye
[2022-04-11] MEDS: HYDROmorphone HCL INJ (*CRX) 1 MG/ML SYR 0.5 MG IV PUSH (17:10)
[2022-04-11 19:36] VITALS: BP 137/70; PULSE 59; RESP 18; TEMP 35.9; O2SAT 100
[2022-04-12] MEDS: LACTATED RINGERS 1,000 ML 125 ML IV CONT ×2 (00:17→12:13)
[2022-04-12] MEDS: ONDANSETRON INJ 4 MG/2 ML VIAL IV PUSH ×2 (02:43→08:21)
[2022-04-12 05:35] VITALS: BP 122/70; PULSE 62; RESP 18; TEMP 36; O2SAT 100
[2022-04-12] MEDS: metroNIDAZOLE 500 MG/ISO 100ML 500 MG/100 ML BAG 100 MG IVPB ×3 (05:36→22:21)
[2022-04-12 05:55] LABS: Basophils Percent Auto 0.1 % (0.2-1.2); Hematocrit 35.1 % (37.0-47.0); Hemoglobin 11.7 g/dL (12.0-15.0); Immature Granulocyte Percent A 0.7 % (0-0.5); Lymphocytes Absolute Auto 1.25 K/mm3 (0.9-3.2); Mean Corpuscular HGB Conc 33.3 g/dl (32-36); Mean Corpuscular Hemoglobin 30.9 pg (26-34); Mean Corpuscular Volume 92.6 fl (80-100); Mean Platelet Volume 11.6 fl (7.4-10.4); Monocytes Absolute Auto 1.2 K/mm3 (0.1-0.6); Monocytes Percent Auto 8.5 % (2.6-8.5); Neutrophils Absolute Auto 11.3 K/mm3 (1.3-6.7); Neutrophils Percent Auto 81.7 % (45.5-73.1); Platelet Count Result 179 k/mm3 (150-375); Red Blood Count 3.79 M/mm3 (4.2-5.4); Red Cell Distribution Width 13.2 % (11.5-14.5); White Blood Count 13.8 K/mm3 (4.5-10.0)
[2022-04-12 06:12] LABS: Alanine Aminotransferase 12 U/L (6-35); Albumin Level 3.6 g/dL (3.5-5.1); Alkaline Phosphatase 43 U/L (38-126); Anion Gap 8 mmol/L (8-16); Aspartate Amino Transferase 14 U/L (14-36); Bilirubin,Total 0.6 mg/dL (0.2-1.3); Blood Urea Nitrogen 15 mg/dL (7-17); Carbon Dioxide 25 mmol/L (22-30); Chloride 104 mmol/L (98-107); Estimated CRCL calculation 108 ml/min; Estimated Glomerular Filt Rate > 60; Glucose 110 mg/dL (65-110); Magnesium 1.9 mg/dL (1.6-2.3); Potassium 3.9 mmol/L (3.4-5.0); Sodium 137 mmol/L (137-145)
[2022-04-12 09:32] VITALS: O2SAT 98
[2022-04-12] MEDS: PANTOPRAZOLE SODIUM IV 40 MG VIAL IV PUSH (10:31)
--- NOTE | 2022-04-12 12:11 | PM.IMPN ---
Progress Note: A&P Assessment and Plan (1) Colitis: Code(s): K52.9 - Noninfective gastroenteritis and colitis, unspecified Status: Acute (2) Nausea & vomiting: Code(s): R11.2 - Nausea with vomiting, unspecified Status: Acute (3) Breast CA: Code(s): C50.919 - Malignant neoplasm of unspecified site of unspecified female breast Status: Acute (4) Liver mass: Code(s): R16.0 - Hepatomegaly, not elsewhere classified Status: Acute Plan # Diffuse abdominal pain for 2 days / Blood in stool # Colitis infectious inflammatory or ischemic. however given the scenario lean toward ischemic colitis more. Continue IV hydration. Continue Levaquin Flagyl for possible infectious colitis. CT done on 04/09/2022 Started on systemic steroid for possible inflammatory bowel disease. GI has been consulted and discussed with him. She failed outpatient treatment recently. Lactic acid normal. Lipase normal LFT normal continue IV hydration for possible ischemic colitis due to location colitis. Stool studies if possible. However no further diarrhea. There is also dilated left-sided parametrial veins left gonadal vein which could be seen in pelvic vascular congestion syndrome. suspect less likely to be inflammatory bowel disease. No family history of IBD. No recurrent similar episode in the past.Would prefer to stop steroid await GI recommendations. ESR and CRP was normal. she will Need colonoscopy in near future for further evaluation need this and also for screening purpose. GI is planning in 6 weeks as she is progressing well on current conservative treatment. No further bleeding per rectum noted. Will continue Levaquin and Flagyl. Will add PPI Stay on clear liquid if tolerates will up it to full liquid today. Continue IV fluids # Right hepatic lobe mass indeterminate 2.[address] recommended. she reports that she already knew this lesion. Will cancel her liver MRI. However does not seem like it is ordered. This is likely a hemangioma # Asthma well controlled # Hiatal hernia # Former smoker #Breast cancer status post lumpectomy this past week prior to admission # DVT prophylaxis SCDs # code status full code Subjective Date/time seen: 04/12/22 12:11 Interval history: HPI:?This is a 51-year-old female with past medical history significant for asthma, hiatal hernia, former smoker,? breast CA status post lumpectomy just recently.? Patient presents to the emergency room due to diffuse abdominal pain for the last 2 days or so, nausea, vomiting, constipation, alternating with small bowel movements, blood in the bowel movements as well as phlegm had some chills but unable to tell if fevers,? has not been able to eat, patient was at the emergency room the day prior and sent home with oral course of antibiotics however returned today due to worsening pain which is now localized to the left lower quadrant.? Preliminary workup was significant for CT OF ABDOMEN AND PELVIS Colitis which could be infectious, inflammatory or ischemic in etiology.2. Indeterminate 2.3 cm mass in the right hepatic lobe scattered benign, malignant or infectious etiologies. Would recommend further evaluation with pre and postcontrast MRI or CT. 04/11/2022 history reviewed. Left upper quadrant pain and epigastric pain reported had bloody bowel movement Monday and Monday. Nausea but no vomiting has been placed on NPO. 04/12/2022 she had to further episodes of vomiting last night. Still feels nauseous. Abdominal pain is better. Had a bowel movement earlier today which was soft trend normal colored. Only tried clear liquids yesterday. Review of Systems Review of Systems: All systems reviewed & are unremarkable except as noted in HPI and below Exam Narrative: GENERAL: The patient is well developed, not in acute distress HEENT: Nonicteric sclerae, PERRLA, EOMI. Oropharynx clear. Moist mucous membranes. Conjunctivae ap
[2022-04-12 15:08] VITALS: BP 119/69; PULSE 63; RESP 16; TEMP 36.3; O2SAT 99
--- NOTE | 2022-04-12 16:01 | WPDGIPROGNO ---
Progress Note: A&P Assessment and Plan (1) Nausea & vomiting: Code(s): R11.2 - Nausea with vomiting, unspecified Status: Acute Assessment and Plan: much better after using protonix we can do EGD as outpatient (she says that last one about 20 years ago and diagnosed with HH) (2) Colitis: Code(s): K52.9 - Noninfective gastroenteritis and colitis, unspecified Status: Acute Assessment and Plan: improved will advance diet colonoscopy in 6 weeks or so hopefully home in 1-2 days (3) Abdominal pain: Code(s): R10.9 - Unspecified abdominal pain Status: Acute Assessment and Plan: better (4) Liver lesion: Code(s): K76.9 - Liver disease, unspecified Status: Acute Subjective Date/time seen: 04/12/22 16:01 Interval history: nausea improved after started on protonix, overall much better with less pain and she is hungrier Review of Systems Review of Systems: All systems reviewed & are unremarkable except as noted in HPI and below Exam Const: General: comfortable and no acute distress HENMT: General nose exam: Normal nares present Eyes: General: appearance normal, both eyes and all related structures Neck: Neck: no JVD Resp: Auscultation: clear to auscultation bilaterally Cardio: Rate: regular rate Rhythm: regular rhythm GI: Inspection: non-distended GI Palp: Yes Soft to palpation Auscultation: normal bowel sounds Skin: General skin exam: normal color Neuro: General: gait normal Speech: normal speech Extrem: General: normal to inspection Psych: Mental Status: mental status grossly normal Objective Data Vital Signs Vital Signs: Vital Signs - 24 hr 04/11/22 19:36 04/12/22 05:35 04/12/22 08:00 Temperature 96.7 F L 96.8 F L Pulse Rate 59 L 62 Respiratory Rate 18 18 Blood Pressure 137/70 122/70 Pulse Oximetry 100 100 Oxygen Delivery Room Air 04/12/22 09:32 04/12/22 15:08 Temperature 97.4 F L Pulse Rate 63 Respiratory Rate 16 Blood Pressure 119/69 Pulse Oximetry 98 99 Oxygen Delivery Room Air Intake/Output Intake/Output: Intake & Output 04/09/22 04/10/22 04/11/22 04/12/22 23:59 23:59 23:59 23:59 Intake Total 1000 2450 1850 Balance 1000 2450 1850 Meds/Results Medications: Active Medications Generic Name Dose Route Start Last Admin Trade Name Freq PRN Reason Stop Dose Admin Acetaminophen 1,000 mg 04/11/22 01:24 04/11/22 14:41 Acetaminophen 500 Mg Tablet PO 1,000 mg Q6H PRN Administration Mild Pain (1-3) or Fever Calcium Carbonate 200 mg 04/11/22 22:32 Calcium Carbonate (Tums) 500 Mg (200 Mg Elemental) PO Q6H PRN Indigestion Hydromorphone HCl 0.5 mg 04/11/22 01:23 04/11/22 17:10 Hydromorphone Hcl Inj (*Crx) 1 Mg/Ml Syr IV PUSH 0.5 mg Q3H PRN Administration Pain Rated 7-10 Lactated Ringer's 1,000 mls @ 125 mls/hr 04/10/22 21:00 04/12/22 12:13 Lr - Lactated Ringers Iv IV CONT 125 mls/hr .Q8H NURIA Administration Levofloxacin/Dextrose 750 mg in 150 mls @ 100 mls/hr 04/11/22 01:00 04/12/22 01:47 Levaquin 750 Mg/D5w 150 Ml IVPB Infused Q24H NURIA Infusion Metronidazole 500 mg in 100 mls @ 100 mls/hr 04/11/22 14:00 04/12/22 14:20 Flagyl 500 Mg/Iso Soln 100 Ml IVPB 100 mls/hr Q8HR NURIA Administration Ondansetron HCl 4 mg 04/11/22 03:07 04/12/22 08:21 Ondansetron Inj 4 Mg/2 Ml Vial IV PUSH 4 mg Q6H PRN Administration Nausea And Vomiting Pantoprazole Sodium 40 mg 04/13/22 09:00 Pantoprazole Sodium Iv 40 Mg Vial IV PUSH QAM NURIA Tramadol HCl 50 mg 04/11/22 01:24 Tramadol Hcl (*Crx) 50 Mg Tablet PO Q4H PRN Pain Rated 4-6 Labs Labs: Laboratory Results - last 24 hr 04/12/22 04/12/22 05:32 05:32 WBC 13.8 H RBC 3.79 L Hgb 11.7 L Hct 35.1 L MCV 92.6 MCH 30.9 MCHC 33.3 RDW 13.2 Plt Count 179 MPV 11.6 H Immature Gran % (Auto) 0.7 H Neut %
[2022-04-12 21:57] VITALS: BP 100/63; PULSE 78; RESP 18; TEMP 37; O2SAT 98
[2022-04-12] MEDS: ACETAMINOPHEN 500 MG TABLET 1000 MG PO (22:24)
[2022-04-13] MEDS: LACTATED RINGERS 1,000 ML 125 ML IV CONT ×2 (03:32→17:22)
[2022-04-13] MEDS: metroNIDAZOLE 500 MG/ISO 100ML 500 MG/100 ML BAG 100 MG IVPB (05:24)
[2022-04-13 06:00] VITALS: BP 112/58; PULSE 56; RESP 16; TEMP 36.9; O2SAT 99
[2022-04-13 06:03] LABS: Basophils Percent Auto 0.2 % (0.2-1.2); Eosinophils Percent Auto 0.4 % (0-4.4); Hematocrit 35.8 % (37.0-47.0); Hemoglobin 11.8 g/dL (12.0-15.0); Immature Granulocyte Absolute 0.04 K/mm3 (0.00-0.031); Immature Granulocyte Percent A 0.4 % (0-0.5); Lymphocytes Absolute Auto 2.15 K/mm3 (0.9-3.2); Lymphocytes Percent Auto 20.3 % (18.3-44.2); Mean Corpuscular Hemoglobin 30.7 pg (26-34); Mean Corpuscular Volume 93.2 fl (80-100); Mean Platelet Volume 11.4 fl (7.4-10.4); Monocytes Absolute Auto 0.9 K/mm3 (0.1-0.6); Monocytes Percent Auto 8.5 % (2.6-8.5); Neutrophils Absolute Auto 7.5 K/mm3 (1.3-6.7); Neutrophils Percent Auto 70.2 % (45.5-73.1); Platelet Count Result 177 k/mm3 (150-375); Red Blood Count 3.84 M/mm3 (4.2-5.4); Red Cell Distribution Width 13.5 % (11.5-14.5); White Blood Count 10.6 K/mm3 (4.5-10.0)
[2022-04-13 06:23] LABS: Alanine Aminotransferase 15 U/L (6-35); Albumin Level 3.6 g/dL (3.5-5.1); Alkaline Phosphatase 42 U/L (38-126); Anion Gap 7 mmol/L (8-16); Aspartate Amino Transferase 30 U/L (14-36); Bilirubin,Total 0.4 mg/dL (0.2-1.3); Blood Urea Nitrogen 13 mg/dL (7-17); Calcium 7.9 mg/dL (8.4-10.2); Carbon Dioxide 27 mmol/L (22-30); Chloride 104 mmol/L (98-107); Estimated CRCL calculation 92 ml/min; Estimated Glomerular Filt Rate > 60; Glucose 107 mg/dL (65-110); Potassium 3.8 mmol/L (3.4-5.0); Sodium 138 mmol/L (137-145)
[2022-04-13] MEDS: ONDANSETRON INJ 4 MG/2 ML VIAL IV PUSH (07:47)
[2022-04-13] MEDS: PANTOPRAZOLE SODIUM IV 40 MG VIAL IV PUSH (07:54)
--- NOTE | 2022-04-13 11:51 | WPDGIPROGNO ---
Progress Note: A&P Assessment and Plan (1) Nausea & vomiting: Code(s): R11.2 - Nausea with vomiting, unspecified Status: Acute Assessment and Plan: better with protonix EGD as outpatient (she says that last one about 20 years ago and diagnosed with HH) (2) Colitis: Code(s): K52.9 - Noninfective gastroenteritis and colitis, unspecified Status: Acute Assessment and Plan: improved and tolerating diet home soon colonoscopy in 6 weeks or so (3) Abdominal pain: Code(s): R10.9 - Unspecified abdominal pain Status: Acute Assessment and Plan: better (4) Liver lesion: Code(s): K76.9 - Liver disease, unspecified Status: Acute Assessment and Plan: probably benign but will order MRI liver Subjective Date/time seen: 04/13/22 11:51 Interval history: overall better, still abdominal pain but improved, also tolerating diet Review of Systems Review of Systems: All systems reviewed & are unremarkable except as noted in HPI and below Exam Const: General: comfortable and no acute distress HENMT: General nose exam: Normal nares present Eyes: General: appearance normal, both eyes and all related structures Neck: Neck: no JVD Resp: Auscultation: clear to auscultation bilaterally Cardio: Rate: regular rate Rhythm: regular rhythm GI: Inspection: non-distended GI Palp: Yes Soft to palpation Auscultation: normal bowel sounds Skin: General skin exam: normal color Neuro: General: gait normal Speech: normal speech Extrem: General: normal to inspection Psych: Mental Status: mental status grossly normal Objective Data Vital Signs Vital Signs: Vital Signs - 24 hr 04/12/22 15:08 04/12/22 21:57 04/12/22 20:20 Temperature 97.4 F L 98.6 F Pulse Rate 63 78 Respiratory Rate 16 18 Blood Pressure 119/69 100/63 Pulse Oximetry 99 98 Oxygen Delivery Room Air 04/13/22 06:00 04/13/22 07:50 Temperature 98.5 F Pulse Rate 56 L Respiratory Rate 16 Blood Pressure 112/58 L Pulse Oximetry 99 Oxygen Delivery Room Air Intake/Output Intake/Output: Intake & Output 04/10/22 04/11/22 04/12/22 04/13/22 23:59 23:59 23:59 23:59 Intake Total 1000 2450 4150 370 Output Total 0 Balance 1000 2450 4150 370 Meds/Results Medications: Active Medications Generic Name Dose Route Start Last Admin Trade Name Freq PRN Reason Stop Dose Admin Acetaminophen 1,000 mg 04/11/22 01:24 04/12/22 22:24 Acetaminophen 500 Mg Tablet PO 1,000 mg Q6H PRN Administration Mild Pain (1-3) or Fever Calcium Carbonate 200 mg 04/11/22 22:32 Calcium Carbonate (Tums) 500 Mg (200 Mg Elemental) PO Q6H PRN Indigestion Hydromorphone HCl 0.5 mg 04/11/22 01:23 04/11/22 17:10 Hydromorphone Hcl Inj (*Crx) 1 Mg/Ml Syr IV PUSH 0.5 mg Q3H PRN Administration Pain Rated 7-10 Lactated Ringer's 1,000 mls @ 125 mls/hr 04/10/22 21:00 04/13/22 03:34 Lr - Lactated Ringers Iv IV CONT Not Given .Q8H NURIA Levofloxacin/Dextrose 750 mg in 150 mls @ 100 mls/hr 04/11/22 01:00 04/13/22 01:45 Levaquin 750 Mg/D5w 150 Ml IVPB Infused Q24H NURIA Infusion Metronidazole 500 mg in 100 mls @ 100 mls/hr 04/11/22 14:00 04/13/22 06:24 Flagyl 500 Mg/Iso Soln 100 Ml IVPB Infused Q8HR NURIA Infusion Ondansetron HCl 4 mg 04/11/22 03:07 04/13/22 07:47 Ondansetron Inj 4 Mg/2 Ml Vial IV PUSH 4 mg Q6H PRN Administration Nausea And Vomiting Pantoprazole Sodium 40 mg 04/13/22 09:00 04/13/22 07:54 Pantoprazole Sodium Iv 40 Mg Vial IV PUSH 40 mg QAM NURIA Administration Tramadol HCl 50 mg 04/11/22 01:24 Tramadol Hcl (*Crx) 50 Mg Tablet PO Q4H PRN Pain Rated 4-6 Labs Labs: Laboratory Results - last 24 hr 04/13/22 04/13/22 05:50 05:50 WBC 10.6 H RBC 3.84 L Hgb 11.8 L Hct 35.8 L MCV 93.2 MCH 30.7 MCHC 33.0 RDW 13.5 Plt Count 177 MPV 11.4 H Im
--- NOTE | 2022-04-13 13:34 | PM.IMPN ---
Progress Note: A&P Assessment and Plan (1) Colitis: Code(s): K52.9 - Noninfective gastroenteritis and colitis, unspecified Status: Acute (2) Nausea & vomiting: Code(s): R11.2 - Nausea with vomiting, unspecified Status: Acute (3) Breast CA: Code(s): C50.919 - Malignant neoplasm of unspecified site of unspecified female breast Status: Acute (4) Liver mass: Code(s): R16.0 - Hepatomegaly, not elsewhere classified Status: Acute Plan # Diffuse abdominal pain for 2 days / Blood in stool # Colitis infectious inflammatory or ischemic. however given the scenario lean toward ischemic colitis more. Continue IV hydration. Continue Levaquin Flagyl for possible infectious colitis. CT done on 04/09/2022 Started on systemic steroid for possible inflammatory bowel disease. GI has been consulted and discussed with him. She failed outpatient treatment recently. Lactic acid normal. Lipase normal LFT normal continue IV hydration for possible ischemic colitis due to location colitis. Stool studies if possible. However no further diarrhea. There is also dilated left-sided parametrial veins left gonadal vein which could be seen in pelvic vascular congestion syndrome. suspect less likely to be inflammatory bowel disease. No family history of IBD. No recurrent similar episode in the past.Would prefer to stop steroid await GI recommendations. ESR and CRP was normal. she will Need colonoscopy in near future for further evaluation need this and also for screening purpose. GI is planning in 6 weeks as she is progressing well on current conservative treatment. No further bleeding per rectum noted. Will continue Levaquin and Flagyl. Will add PPI Stay on clear liquid if tolerates will up it to full liquid today. Continue IV fluids # Right hepatic lobe mass indeterminate 2.[address] recommended. she reports that she already knew this lesion. Will cancel her liver MRI. However does not seem like it is ordered. This is likely a hemangioma # Asthma well controlled # Hiatal hernia # Former smoker #Breast cancer status post lumpectomy this past week prior to admission # DVT prophylaxis SCDs # code status full code 04/13/2022 interval history: 51-year-old female presented with nausea or vomiting abdominal pain is found to have colitis seen by GI suspect infectious and being treated with Levaquin and Flagyl, patient stats she feels bloated, passing gas but no BM, no nausea or vomiting, able to tolerate low fiver diet, will CPM, may possibly discharge tomorrow. Subjective Date/time seen: 04/13/22 13:34 Interval history: 04/13/2022 interval history: 51-year-old female presented with nausea or vomiting abdominal pain is found to have colitis seen by GI suspect infectious and being treated with Levaquin and Flagyl, patient stats she feels bloated, passing gas but no BM, no nausea or vomiting, able to tolerate low fiver diet, will CPM, may possibly discharge tomorrow. Review of Systems Review of Systems: All systems reviewed & are unremarkable except as noted in HPI and below Exam Narrative: Patient is comfortable, NAD HEENT: eyes are clear and none icteric LUNGS: normal respiratory effort ABD: not distended Lower extremities: no edema SKIN: nonjaundiced Neuro: grossly intact. Objective Data Vital Signs Vital Signs: Vital Signs - 24 hr 04/12/22 15:08 04/12/22 21:57 04/12/22 20:20 Temperature 97.4 F L 98.6 F Pulse Rate 63 78 Respiratory Rate 16 18 Blood Pressure 119/69 100/63 Pulse Oximetry 99 98 Oxygen Delivery Room Air 04/13/22 06:00 04/13/22 07:50 Temperature 98.5 F Pulse Rate 56 L Respiratory Rate 16 Blood Pressure 112/58 L Pulse Oximetry 99 Oxygen Delivery Room Air Intake/Output Intake/Output: Intake & Output 04/10/22 04/11/22 04/12/22 04/13/22 23:59 23:59 23:59 23:59 Intake Total 1000 2450 4150 370 Output Total 0 Balance 100
[2022-04-13] MEDS: metroNIDAZOLE 250 MG TABLET 500 MG PO ×2 (13:59→21:51)
[2022-04-13 15:20] VITALS: BP 121/63; PULSE 61; RESP 16; TEMP 36.4; O2SAT 99
[2022-04-13 19:30] VITALS: BP 123/73; PULSE 61; RESP 16; TEMP 36.4; O2SAT 100
[2022-04-14] MEDS: LACTATED RINGERS 1,000 ML 125 ML IV CONT (02:39)
[2022-04-14 04:25] VITALS: BP 125/75; PULSE 64; RESP 18; TEMP 36.6; O2SAT 99
[2022-04-14] MEDS: metroNIDAZOLE 250 MG TABLET 500 MG PO (06:06)
[2022-04-14 06:37] LABS: Hematocrit 34.7 % (37.0-47.0); Hemoglobin 11.3 g/dL (12.0-15.0); Mean Corpuscular HGB Conc 32.6 g/dl (32-36); Mean Corpuscular Hemoglobin 30.7 pg (26-34); Mean Corpuscular Volume 94.3 fl (80-100); Mean Platelet Volume 11.8 fl (7.4-10.4); Platelet Count Result 187 k/mm3 (150-375); Red Blood Count 3.68 M/mm3 (4.2-5.4); Red Cell Distribution Width 13.5 % (11.5-14.5); White Blood Count 8.8 K/mm3 (4.5-10.0)
[2022-04-14 06:57] LABS: Anion Gap 5 mmol/L (8-16); Blood Urea Nitrogen 10 mg/dL (7-17); Carbon Dioxide 29 mmol/L (22-30); Chloride 103 mmol/L (98-107); Estimated CRCL calculation 92 ml/min; Estimated Glomerular Filt Rate > 60; Glucose 100 mg/dL (65-110); Magnesium 1.8 mg/dL (1.6-2.3); Potassium 3.6 mmol/L (3.4-5.0); Sodium 137 mmol/L (137-145)
[2022-04-14] MEDS: PANTOPRAZOLE SODIUM IV 40 MG VIAL IV PUSH (08:00)
[2022-04-14] MEDS: ACETAMINOPHEN 500 MG TABLET 1000 MG PO (08:00)
[2022-04-14] MEDS: levoFLOXacin 750 MG TABLET PO (10:39)
--- NOTE | 2022-04-14 10:48 | PM.DS ---
DS: Admitting Diagnosis Discharge Date 04/14/2022 Admitting Diagnosis Left lower quadrant pain DS: Discharge Diagnosis Discharge Diagnosis (1) Colitis: Code(s): K52.9 - Noninfective gastroenteritis and colitis, unspecified Status: Acute (2) Nausea & vomiting: Code(s): R11.2 - Nausea with vomiting, unspecified Status: Acute (3) Breast CA: Code(s): C50.919 - Malignant neoplasm of unspecified site of unspecified female breast Status: Acute (4) Liver mass: Code(s): R16.0 - Hepatomegaly, not elsewhere classified Status: Acute Plan # Diffuse abdominal pain for 2 days / Blood in stool # Colitis infectious inflammatory or ischemic. however given the scenario lean toward ischemic colitis more. Continue IV hydration. Continue Levaquin Flagyl for possible infectious colitis. CT done on 04/09/2022 Started on systemic steroid for possible inflammatory bowel disease. GI has been consulted and discussed with him. She failed outpatient treatment recently. Lactic acid normal. Lipase normal LFT normal continue IV hydration for possible ischemic colitis due to location colitis. Stool studies if possible. However no further diarrhea. There is also dilated left-sided parametrial veins left gonadal vein which could be seen in pelvic vascular congestion syndrome. suspect less likely to be inflammatory bowel disease. No family history of IBD. No recurrent similar episode in the past.Would prefer to stop steroid await GI recommendations. ESR and CRP was normal. she will Need colonoscopy in near future for further evaluation need this and also for screening purpose. GI is planning in 6 weeks as she is progressing well on current conservative treatment. No further bleeding per rectum noted. Will continue Levaquin and Flagyl. Will add PPI Stay on clear liquid if tolerates will up it to full liquid today. Continue IV fluids # Right hepatic lobe mass indeterminate 2.[address] recommended. she reports that she already knew this lesion. Will cancel her liver MRI. However does not seem like it is ordered. This is likely a hemangioma # Asthma well controlled # Hiatal hernia # Former smoker #Breast cancer status post lumpectomy this past week prior to admission # DVT prophylaxis SCDs # code status full code 04/13/2022 interval history: 51-year-old female presented with nausea or vomiting abdominal pain is found to have colitis seen by GI suspect infectious and being treated with Levaquin and Flagyl, patient stats she feels bloated, passing gas but no BM, no nausea or vomiting, able to tolerate low fiver diet, will CPM, may possibly discharge tomorrow. DS: Summary Hospital Course Reason for hospitalization: Chief Complaint: ? Left lower quadrant pain Narrative: ?This is a 51-year-old female with past medical history significant for asthma, hiatal hernia, former smoker,? breast CA status post lumpectomy just recently.? Patient presents to the emergency room due to diffuse abdominal pain for the last 2 days or so, nausea, vomiting, constipation, alternating with small bowel movements, blood in the bowel movements as well as phlegm had some chills but unable to tell if fevers,? has not been able to eat, patient was at the emergency room the day prior and sent home with oral course of antibiotics however returned today due to worsening pain which is now localized to the left lower quadrant.? Preliminary workup was significant for CT OF ABDOMEN AND PELVIS Colitis which could be infectious, inflammatory or ischemic in etiology.2. Indeterminate 2.3 cm mass in the right hepatic lobe scattered benign, malignant or infectious etiologies. Would recommend further evaluation with pre and postcontrast MRI or CT. Hospital Course: 51-year-old female presented with nausea or vomiting abdominal pain is found to have colitis seen by GI suspect infectious and being treated with Levaquin and Flagyl, patient stats
[2022-04-16 17:07] LABS: Alpha Fetoprotein Tumor Marker 2.6 ng/mL (<6.1)
== END 2022-04-14 11:35 | disposition home or self-care (01) | DRG 249 ==
LOC: ANHED 20:56 → ANH2MED 22:32
PROVIDERS: Emergency Medicine; Internal Medicine; Internal Medicine Gastroenterology; Admitting Provider Internal Medicine; Emergency Provider Emergency Medicine; Visit Provider Family Medicine
DX: K52.9 Noninfective gastroenteritis and colitis, unspecified (principal); C50.911 Malignant neoplasm of unspecified site of right female breast; J45.909 Unspecified asthma, uncomplicated; K44.9 Diaphragmatic hernia without obstruction or gangrene; R16.0 Hepatomegaly, not elsewhere classified; Z20.822 Contact with and (suspected) exposure to COVID-19; Z87.891 Personal history of nicotine dependence
CPT/HCPCS: 36415; 80048; 80053; 81001; 81025; 82105; 83690; 83735; 85025; 85027; 85652; 86140; 96361; 96365; 96366; 96367; 96374; 96375; 96376; 99285; A9270; C9113; C9803; G0378; G0379; J1170; J1956; J2405; J2930; J7030; J7120; U0003; U0005

== ENCOUNTER 2022-05-17 00:58 | Day surgery (SDC) | payer MEDICAID, SELFPAY ==
[2022-05-04 14:36] VITALS: BMI 22.3
[2022-05-17 11:25] VITALS: BP 104/69; PULSE 79; RESP 18; TEMP 36.2; O2SAT 98
--- NOTE | 2022-05-17 11:29 | P.PNAN_ITS ---
Anes - Initial Pre Proc Eval Procedure: Operation Date: 05/17/22 12:30 Proposed Procedures p Esophagogastroduodenoscopy & Colonoscopy - Parminder Brumfield MD Date/Time: 05/17/22 11:29 Surgeon: Parminder Brumfield MD Pre Op Diagnosis: nausea, colitis Patient Data Age: 51 Gender: F Height: 1.7 m Weight: 62 kg Last Vital Signs Temp 36.2 C L 05/17/22 11:25 Pulse 79 05/17/22 11:25 Resp 18 05/17/22 11:25 BP 104/69 05/17/22 11:25 Pulse Ox 98 05/17/22 11:25 O2 Del Method Room Air 05/17/22 11:25 Allergies Allergy/AdvReac Type Severity Reaction Status Date / Time Sulfa (Sulfonamide AdvReac Mild Nausea Verified 05/17/22 11:20 Antibiotics) Home Medications Medication Instructions Recorded Confirmed Type albuterol sulfate 90 mcg/actuation 2 puff inhalation QID PRN 07/08/21 05/04/22 Rx aerosol inhaler (Ventolin HFA) shortness of breath or wheezing #8.5 grams ibuprofen 200 mg tablet 200 mg PO Q6H PRN headaches 07/08/21 05/04/22 History famotidine 20 mg tablet (Pepcid AC) 20 mg PO DAILY #14 tabs 04/09/22 05/04/22 Rx Patient hx anesthesia problems: post op nausea/vomiting Family hx anesthesia problems: none Results Review: All pre-operative results and documents have been reviewed as part of the pre- operative evaluation. [facility] Past Medical History Medical History (Updated 04/11/22 @ 17:12 by Parminder Brumfield MD) Abdominal pain Asthma Hiatal hernia Leukocytosis Liver lesion PONV (postoperative nausea and vomiting) Surgical History Surgical History (Updated 05/17/22 @ 11:30 by Eugenio Mott MD) H/O lumpectomy Social History Social History Smoking packs per day: 1 Smoking cigarettes per day: 20.0 Years smoked: 30 Smoking pack-years: 30.00 Smoking status: Former smoker Tobacco type: cigarettes Smoking end date: 05/12/19 Alcohol intake: never Alcohol use details: 2 GLASSES PER YEAR Substance use: current Substance use type: marijuana Other substance usage details: MEDICAL CARD Last use: DAILY Living arrangements: with family Spiritual care concerns: No Anes - Eval Final PreProcedure Day of Procedure 05/17/22 11:29 Patient weight: normal Heart: regular rate and rhythm Lungs: clear to auscultation Airway: Mallampati scale class II Neurological: alert and oriented Last oral intake: >/= 8 hours ASA classification: III Emergent: no Anesthetic plan: proceed Anesthesia type and monitoring: general GIVS and standard monitoring Results Review: All pre-operative results and documents have been reviewed as part of the pre- operative evaluation. Informed Consent: The patient's anesthetic plan and its attendant risks and benefits were discussed with the patient/family/POA. Questions were solicited and answers provided to the satisfaction of the patient/family/POA.
[2022-05-17] MEDS: LACTATED RINGERS 1,000 ML 150 ML IV CONT (11:44)
--- NOTE | 2022-05-17 12:07 | PM.HPGS ---
History of Present Illness History of Present Illness Consent: Risks, benefits, and alternatives have been discussed and questions answered. Patient agrees to proceed with procedure. Chief complaint: nausea, colitis Narrative: Kay Glaser is a 51 year old female with recent hospitalization for colitis now back to her baseline but never had colonoscopy, also was nauseous and now better with famotidine. Review of Systems Constitutional: Constitutional: Denies headache(s) and Denies weakness Eyes: Eyes: Denies blurry vision ENT: Reports Normal hearing present, Denies headache(s) and Denies neck pain Cardiovascular: Cardiovascular: Denies chest pain and Denies dyspnea Respiratory: Respiratory: Denies dyspnea Gastrointestinal: Gastrointestinal: Reports no additional gastrointestinal complaints Genitourinary: Genitourinary: Denies dysuria Musculoskeletal: Musculoskeletal: Denies neck pain Integumentary/Breasts: Skin/Breast: Denies dry skin Neurologic: Reports Normal hearing present, Denies headache(s) and Denies weakness Psychiatric: Psychiatric: Denies anxiety Endocrine: Endocrine: Denies change in body appearance Hematologic/Lymphatic: Hematologic/Lymphatic: Denies easy bleeding Allergic/Immunologic: Allergic/Immunologic: Denies urticaria PMFSH Past Medical History Medical History (Updated 05/17/22 @ 12:08 by Parminder Brumfield MD) Abdominal pain Asthma Hiatal hernia Leukocytosis Liver lesion Nausea PONV (postoperative nausea and vomiting) Surgical History Surgical History (Updated 05/17/22 @ 11:30 by Eugenio Mott MD) H/O lumpectomy Social History Social History Smoking packs per day: 1 Smoking cigarettes per day: 20.0 Years smoked: 30 Smoking pack-years: 30.00 Smoking status: Former smoker Tobacco type: cigarettes Smoking end date: 05/12/19 Alcohol intake: never Alcohol use details: 2 GLASSES PER YEAR Substance use: current Substance use type: marijuana Other substance usage details: MEDICAL CARD Last use: DAILY Living arrangements: with family Spiritual care concerns: No Meds Home Medications and Allergies Home Medications Medication Instructions Recorded Confirmed Type albuterol sulfate 90 mcg/actuation 2 puff inhalation QID PRN 07/08/21 05/04/22 Rx aerosol inhaler (Ventolin HFA) shortness of breath or wheezing #8.5 grams ibuprofen 200 mg tablet 200 mg PO Q6H PRN headaches 07/08/21 05/04/22 History famotidine 20 mg tablet (Pepcid AC) 20 mg PO DAILY #14 tabs 04/09/22 05/04/22 Rx Allergies Allergy/AdvReac Type Severity Reaction Status Date / Time Sulfa (Sulfonamide AdvReac Mild Nausea Verified 05/17/22 11:20 Antibiotics) Vital Signs Vital Signs - 24 hr 05/17/22 11:25 Temperature 97.1 F L Pulse Rate 79 Respiratory Rate 18 Blood Pressure 104/69 Pulse Oximetry 98 Oxygen Delivery Room Air Exam Const: General: comfortable and no acute distress HENMT: General nose exam: Normal nares present Eyes: General: appearance normal, both eyes and all related structures Neck: Neck: no JVD Resp: Auscultation: clear to auscultation bilaterally Cardio: Rate: regular rate Rhythm: regular rhythm GI: Inspection: non-distended GI Palp: Yes Soft to palpation Skin: General skin exam: normal color Neuro: General: gait normal Speech: normal speech Extrem: General: normal to inspection Psych: Mental Status: mental status grossly normal Assessment and Plan Assessment and plan (1) Colitis: Code(s): K52.9 - Noninfective gastroenteritis and colitis, unspecified Status: Acute Assessment and Plan: recent hospitalization, now asymptomatic but never had colonoscopy (2) Nausea: Code(s): R11.0 - Nausea Status: Acute Assessment and Plan: better, will do egd
--- NOTE | 2022-05-17 12:30 | SUR.OPER ---
EGD ended at 1226. Colonoscopy began at 1231.
[2022-05-17 12:46] VITALS: BP 95/60; PULSE 59; RESP 17; O2SAT 100
[2022-05-17 12:56] VITALS: BP 104/63; PULSE 60; RESP 20; O2SAT 98
[2022-05-17 13:06] VITALS: BP 102/66; BP 112/74; PULSE 58; PULSE 69; RESP 18; O2SAT 100; O2SAT 99
== END 2022-05-17 13:31 | disposition home or self-care (01) ==
PROVIDERS: Visit Provider Internal Medicine Gastroenterology
PROC: 0DJ08ZZ Inspection of Upper Intestinal Tract, Via Natural or Artificial Opening Endoscopic (ICD-10-PCS; CPT 43235; principal; 2022-05-17 12:30)
DX: Z12.11 Encounter for screening for malignant neoplasm of colon (principal); K64.8 Other hemorrhoids; R11.0 Nausea; Z87.19 Personal history of other diseases of the digestive system; K29.50 Unspecified chronic gastritis without bleeding; J45.909 Unspecified asthma, uncomplicated; R10.9 Unspecified abdominal pain; K44.9 Diaphragmatic hernia without obstruction or gangrene; D72.829 Elevated white blood cell count, unspecified; K76.9 Liver disease, unspecified; Z87.891 Personal history of nicotine dependence; F12.90 Cannabis use, unspecified, uncomplicated; Z79.51 Long term (current) use of inhaled steroids
CPT/HCPCS: 45378; 43239; 88305; J2704; J7120

== ENCOUNTER 2024-12-24 10:33 | Outpatient (CLI) | payer MEDICAID, SELFPAY ==
--- NOTE | ~2024-12-24 | CT_ITS ---
CT Scan of the Chest without Contrast: Clinical Indication: Lung cancer screening, nicotine dependence Technique: Contiguous sections were acquired throughout the chest without intravenous contrast. Dose reduction technique was used on this scan by utilizing automated exposure control and iterative recon struction technique. The dose-length product (DLP) was 67.97 mGy-cm. Findings: There is no evidence of any significant mediastinal, hilar or axillary lymphadenopathy. The mediastin al soft tissues appear normal. There is no evidence of pleural or pericardial effusion. The lungs are clear. No pulmonary nodules or infiltrates are noted. There is mild to moderate emphyse ma. Images through the upper abdomen reveal no abnormalities. Impression: Lung RADS 1: Negative. 12 month follow-up screening CT advised. Mild to moderate emphysema. Reviewed, dictated and finalized at location . Impression: Lung RADS 1: Negative. 12 month follow-up screening CT advised. Mild to moderate emphysema.
--- OUTSIDE RECORDS SUMMARY | 2024-12-24 11:39 | XMS_ITS | Encounter Summary ---
Author Organization [facility] Address [address] [place] [address] Care Team Providers Care Certified Surgical Technician Name Role Phone Unavailable Primary Care Provider Unavailabl e Encounter Details Date Type Department Care Team (Late st Contact Info) Description 03/24/2020 Lab Requisition [facility] [address] [place] [address] Social History Tobacco Use Types Packs/Day Years Used Date Smoking Tobacco: Never Assessed Comments Unknown Sex and Gender Information Value Date Recorded Sex Assigned at Not on file Legal Sex Female 5:28 AM [employer] Gender Identity Not on file Sexual Orientation Not on file documented as of this encounter Plan of Treatment Not on file documented as of this encounter Procedures Procedure Name Priority Date/Time Associated Diagnosis Comments SARS-COV-2 (COVID-19) IN HOUSE Routine 03/23/2020 9:25 AM CDT documented in this encounter Results * SARS-COV-2 (COVID-19) IN HOUSE (03/23/2020 9:25 AM CDT) COVID-19 PCR Not detected Not detected, Invalid 03/24/2020 9:01 PM CDT [facility] Microbiology SPECIMEN FROM NASOPHARYNGEAL STRUCTURE / Unknown Collection / Unknown 03/23/2020 9:25 AM CDT 03/24/2020 9:22 AM CDT Narrative [facility] - 03/24/2020 9:01 PM CDT This Real Time RT-PCR assay was developed and its performance characteristics determined by [facility]. This test has been authorized by the Food and Drug administration (FDA)under an Emergency Use Authorization (EUA). This test has been validated in accordance with the FDA's guidance document Policy for Diagnostic Testing in Laboratories Certified to perform High Complexity Testing under CLIA prior to Emergency Use Authorization for Coronavirus Disease-2019 during the Public Health Emergency issued on November 09, 2019. FDA independent review of this validation is pending. This test is only authorized for the duration of time the declaration that circumstances exist justifying the authorization of emergency use of in vitro diagnostic tests for detection of SARS-CoV-2 virus and/or diagnosis of COVID-19 infection under section 564(b)(1) of the Act, 21 U.S.C 360bbb-3 (b)(1), unless the authorization is terminated or revoked sooner. us LAB - MICROBIOLOGY ORDERABLES Fi nal Result [facility] [address] [place] [address], [facility] [phone] documented in this encounter Visit Diagnoses Not on filedocumented in this encounter Additional Health Concerns Infection Onset Date Last Indicated Resolved Time COVID-19 Under Investigation 03/24/2020 03/23/2020 03/24/2020 9:01 PM CDT documented as of this encounter
--- OUTSIDE RECORDS SUMMARY | 2024-12-24 11:39 | XMS_ITS | Continuity of Care Document ---
Author Organization [facility] Address [address] [place] [address] Phone Care Team Providers Care Night Stocker Name Role Phone Kishore Marroquin MD Unavailable Unavailable Allergies, Adverse Reactions, Alerts Substance Reaction Status Criticality sulfanilamide Active No Information Medications Medication Instructions Dosage Effective Dates (start - stop) Status Comments VITAMIN D3 (unknown strength) Not Available - Active PROAIR HFA (unknown strength) Not Available - Active Procedures Procedure Date MU Reporting OFFICE/OUTPATIENT VISIT EST MU Reporting OFFICE/OUTPATIENT VISIT EST MU Reporting OFFICE/OUTPATIENT VISIT EST MU Reporting MU Reporting OFFICE/OUTPATIENT VISIT NEW Advance Directives Directive Yes / No Effective Date File Name Resuscitation Not Answered N/A N/A Life Support Not Answered N/A N/A Intubation Not Answered N/A N/A Antibiotics Not Answered N/A N/A IV Fluid Support Not Answered N/A N/A Tube Feed Not Answered N/A N/A Other Directive N/A N/A WARNING:The information contained in this section is historical and is provided for information only and does not constitute a legal document or any assurance that the information is still accurate. Please verify the information with the queen of the legal document before using it for clinical purposes. Encounters Encounter Description Practice Location Reason(s) For Visit Diagnoses Date Provider Providers Copied on Encounter OFFICE/OUTPAT IENT VISIT EST [facility] , [address], [place], [address], [place] tel:[phone] [facility] Pain in joint involving shoulder region Lopez Novak. [address], [place], [place], [id number]. tel:[phone] Referring Provider: [place], [address]. tel:[phone] OFFICE/OUTPAT IENT VISIT EST [facility] , [address], [place], [address], [place] tel:[phone] [facility] Pain in joint involving shoulder region Lopez Novak. [address], [place], [place], [id number]. tel:[phone] Referring Provider: Yuan Barger, [place], [address]. tel:[phone] OFFICE/OUTPAT IENT VISIT EST [facility] , [address], [place], [address], [place] tel:[phone] [facility] Pain in joint involving shoulder region Lopez Novak. [address], [place], [place], [id number]. tel:[phone] Referring Provider: Yuan Barger, [place], [address]. tel:[phone] OFFICE/OUTPAT IENT VISIT NEW [facility] , [address], [place], [address], [place] tel:[phone] [facility] Pain in joint involving shoulder region Lopez Novak. [address], [place], [place], [id number]. tel:[phone] Referring Provider: [place], [address]. tel:[phone] Family History Family Member Type Diagnosis Age At Onset No Information Payers Payer name Insurance type Covered constitution party ID Authoriza tion(s) No Information Social History Type Description Quantity Date Captured Comments Alcohol Use Details No Caffeine Use Details Unknown Tobacco Use Status No Information Smoking Status Current some day smoker 013 Sex Female Chief Complaint And Reason For Visit No Information Reason For Referral Reason For Referral No Information Plan Of Treatment Date Type Action Status Goal Tobacco cessation counseling completed Goal Tobacco cessation counseling completed History Of Present Illness Encounter Date Complaint History Of Prese nt Illness No Information Functional Status Date Functional Assessmen t No Information Instructions Date Instruction Additional Infor mation OTC anti-inflammatories (NSAIDs) Activity as tolerated See plan for specific education/ instructions See plan for specific education/ instructions OTC anti-inflammatories (NSAIDs) Activity as tolerated OTC anti-inflammatories (NSAIDs) Activity as tolerated See plan for specific education/ instructions See plan for specific education/ instructions OTC anti-inflammatories (NSAIDs) Activity as tolerated Assessments Type Assessment Date No Information Patient Care Teams Name Effective Dates (start - stop) Status Members No Information
--- OUTSIDE RECORDS SUMMARY | 2024-12-24 11:39 | XMS_ITS | Clinical Summary ---
Author Organization [facility] Address [address] [facility] [address] [place] [address] Care Team Providers Care Athletic Instructor Name Role Phone Unavailable Primary Care Provider Unavailabl e Source Comments [facility],non-owned Affiliates and Associated Physician Practices is amultiple site organization consisting of ambulatory clinics and hospital sitesin [place], [place], [place] and [place]. This disclosure is being madepursuant to the Care Everywhere program and may not contain all information available regarding this patient. 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 Gender Identity Not on file Sexual Orientation Not on file Plan of Treatment Health Maintenance Due Date Last Done Comments COLOGUARD (AGES 45-75) - COL ON CA SCREENING 1970 COLON MONITORING 1970 COLONOSCOPY - COLON CA SCREENING 1970 CT COLONOGRAPHY - COLON CA SCREENING 1970 Colorectal Cancer Screening 1970 FIT - COLON CA SCREENING 1970 FLEX SIG - COLON CA SCREENING 1970 LIPID TESTING 1970 MAMMOGRAM 1970 PAP SMEAR 1970 HIV SCREENING 1985 HEPATITIS C SCREENING 11/21/1988 DTAP/TDAP/TD VACCINES (1 - Tdap) 1989 HEPATITIS B VACCINE (1 of 3 - 19+ 3-dose series) 1989 PNEUMOCOCCAL VACCINE 50+ (1 of 1 - PCV) 2020 ZOSTER VACCINE (1 of 2) 2020 COVID-19 VACCINE (2023-2 5 season) 2024 DEPRESSION SCREENING 09/11/2024 INFLUENZA VACCINE (Season Ended) 2025 HIB VACCINE Aged Out No longer eligi ble based on patient's age to complete this topic HPV VACCINE Aged Out No longer eligi ble based on patient's age to complete this topic MENINGOCOCCAL (Group B) VACC INE SHARED DECISION-MAKING Aged Out No longer eligibl e based on patient's age to complete this topic MENINGOCOCCAL GROUPS A/C/Y/W VACCINE Aged Out No longer eligible b ased on patient's age to complete this topic Insurance [place] [id number]
--- OUTSIDE RECORDS SUMMARY | 2024-12-24 11:39 | XMS_ITS | Clinical Summary ---
Author Organization [facility] [address] Address [address] [place] [address] Care Team Providers Care Marketing Project Specialist Name Role Phone Unavailable Primary Care Provider Unavailabl e Allergies No known active allergies Medications albuterol HFA 90 mcg inhaler Take 2 Puffs by inhalation every 6 hours as needed for Shortness of Breath. Active fluconazole (DIFLUCAN) 150 mg tablet Take 1 Tablet (150 mg) by mouth daily. Take 1 tablet PO today. Repeat in 72 hours if symptoms persist 2 Tablet 1 9 Active Social History Tobacco Use Types Packs/Day Years Used Date Smoking Tobacco: Former Cigarettes Comments No Sex and Gender Information Value Date Recorded Sex Assigned at Not on file Legal Sex Female 10:51 PM CDT Gender Identity Not on file Sexual Orientation Not on file Last Filed Vital Signs Vital Sign Reading Time Taken Comments Blood Pressure 113/70 07/01/2019 6:39 PM CDT Pulse 63 07/01/2019 6:39 PM CDT Temperature 36.7 C (98 F) 07/01/2019 6:39 PM CDT Respiratory Rate 16 07/01/2019 6:39 PM CDT Oxygen Saturation 99% 07/01/2019 6:39 PM CDT Inhaled Oxygen Concentration - - Weight 59 kg (130 lb) 07/01/2019 6:39 PM CDT Height 170.2 cm (5' 7 ) 07/01/2019 6:39 PM CDT Body Mass Index 20.36 07/01/2019 6:39 PM CDT Plan of Treatment Health Maintenance Due Date Last Done Comments DTAP/TDAP/TD VACCINES (1 - Tdap) 1989 HEPATITIS B VACCINES (1 of 3 - 19+ 3-dose series) 11/09 HPV/Cotest (21-29) 11/27/1991 PAP SMEAR 11/27/1991 CERVICAL CANCER SCREENING 2000 HPV/Cotest (30-65) 2000 PAP SMEAR 2000 BREAST CANCER SCREENING 2010 COLORECTAL SCREENING 11/27/2015 Colorectal Cancer Screening 11/27/2015 FIT-DNA Q 3 years 11/27/2015 FIT/FOBT Q 1 year 11/27/2015 Flex Sig/CT Colonography Q 5 years 11/27/2015 ZOSTER VACCINE (1 of 2) 2020 INFLUENZA VACCINE (#1) 2024 Insurance [facility]
--- OUTSIDE RECORDS SUMMARY | 2024-12-24 11:39 | XMS_ITS | Referral Summary ---
Author Organization [facility] [address] Address [address] [place] [address] Phone Care Team Providers Care Passenger Coach Driver Name Role Phone No, Physician Primary Care Provider [phone] Allergies No known active allergies Medications albuterol HFA (PROVENTIL HFA,VENTOLIN HFA,PROAIR HFA) 90 mcg/actuation inhaler Inhale 2 puffs every 6 (six) hours as needed 06/09/2022 Active Lactobacillus acidophilus (PROBIOTIC ORAL) Take by mouth daily Active famotidine (PEPCID) 20 mg tablet Take 20 mg by mouth daily 04/09/2022 Active tamoxifen (NOLVADEX) 20 mg tablet Take 1 tablet (20 mg total) by mouth daily 06/09/2022 Active Active Problems No known active problems Social History Tobacco Use Types Packs/Day Years Used Date Smoking Tobacco: Former Cigarettes Smokeless Tobacco: Never Tobacco Cessation:Counseling Given: Not Answered Personal Safety Answer Date Recorded Getting School Help Needed Not on file 08/25 Comments No Sex and Gender Information Value Date Recorded Sex Assigned at Not on file 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 Gender Identity Not on file Sexual Orientation Not on file Occupation Industry Job Start Date Job End Date Self Employed Not on file Not on file Not on file Last Filed Vital Signs Vital Sign Reading Time Taken Comments Blood Pressure 110/60 06/23/2023 1:31 PM CDT Pulse - - Temperature - - Respiratory Rate - - Oxygen Saturation - - Inhaled Oxygen Concentration - - Weight 68.9 kg (151 lb 12.8 oz) 06/23/2023 1:31 PM CDT Height 170.2 cm (5' 7 ) 06/23/2023 1:31 PM CDT Body Mass Index 23.78 06/23/2023 1:31 PM CDT Plan of Treatment Not on file Procedures Procedure Name Priority Date/Time Associated Diagnosis Comments PAP AND HIGH RISK HPV, REFLEX TO GENOTYPING Routine 06/20/2022 11:32 AM CDT Screening for malignant neoplasm of cervix DIAGNOSTIC MAMMOGRAM BILATERAL W ASH W IMPLANTS Routine 07/11/2014 12:00 AM CDT from Last 3 Months or Most Recently Relevant to Health Maintenance Results * Pap and High Risk HPV, reflex to Genotyping (06/20/2022 11:32 AM CDT) Thin prep (Pap test) 06/20/2022 11:32 AM CDT 06/20/2022 11:32 AM CDT Narrative PATHOLOGY CH - 06/24/2022 1:34 PM CDT [facility] Department of Pathology [address] [place] [id number] Final Report with Addendum Note to Patients: This report may contain a detailed description of human tissue sent by a health care provider to the laboratory for pathologic evaluation. The content of this report is essential for diagnosis and may provide important critical findings. This information may be unfamiliar to patients to review without a medical professional present. It is advised that the patient review this report in the presence of a health care provider who can answer questions and explain the details. Patient Name: KAY NUNES Address: [address] [address] Gender: F : 1970 (Age: 51) Service: Laboratory Location: [facility] #: [id number] Patient Type: SPECIMEN Taken: 06/20/2022 Received: 06/20/2022 Accessioned:: 06/21/2022 Reported: 06/24/2022 Physician(s): Pierre Veliz D.O. Diagnosis: Source of Specimen: SCREENING THIN PREP IMAGED PAP w/ HPV Specimen Adequacy: - Satisfactory for evaluation; endocervical/transformation zone component present General Category: - Negative for intraepithelial lesion or malignancy ARIS Cain(ASCP) Report Electronically Reviewed and Signed Out By ARIS Cain(ASCP) 06/24/2022 13:34:28Addenda: HPV Test Interpretation NEGATIVE for types 16, 18, 31, 33, 35, 39, 45, 51, 52, 56, 58, 59, 66 and 68. Test performed utilizing [employer] Aptima assay. ARIS Cain(ASCP)Report Electronically Reviewed and Signed Out By ARIS Cain(ASCP) 06/22/2022 10:55:31 Specimen(s) Received: A: SCREENING THIN PREP IMAGED PAP w/ HPV Clinical History: The Pap test is a screening test used to aid in the detection of cervical cancer and its precursors. It should not be the sole means by which malignant and premalignant lesions are diagnosed. Both false negative and false positive results may occur. It also has poor sensitivity for the detection of endometrial lesions and should not be used to evaluate suspected endometrial abnormalities. For these reasons it is most important to obtain Pap tests at regular intervals. The performance characteristics of some immunohistochemical stains, fluorescence in-situ hybridization tests and immunophenotyping by flow cytometry cited in this report (if any) were determined by the Surgical Pathology Department at [facility] as part of an ongoing quality measurement specialist program and in compliance with federally mandated regulations drawn from the Clinical Laboratory Improvement Act of 1988 (CLIA '88). Some of these tests rely on the use of analyte specific reagents and are subject to specific labeling requirements by the US Food and Drug Administration. Such diagnostic tests may only be performed in a facility that is certified by the Department of Health and Human Services as a high complexity laboratory under CLIA '88. The FDA has determined that such clearance or approval is not necessary. This test is used for clinical purposes. It should not be regarded as investigational or for research. Nevertheless, federal rules concerning the medical use of analyte specific reagents require that the following disclaimer be attached to the report: This test was developed and [facility] It has not been cleared or approved by the U. S. Food and Drug Administration. us Marisel Israel DO LAB CYTOLOGY [place] [id number] [place] [address] * Diagnostic Mammogram Bilateral W Ash W Implants (07/11/2014 12:00 AM CDT) Anatomical Region Laterality Modality Breast Bilateral Mammography 07/11/2014 1:06 PM CDT Narrative 07/11/2014 3:56 PM CDT Digital diagnostic mammogram with implants and implant displaced projections with tomosynthesis and CAD as well as right breast ultrasound 11 July 2014 HISTORY: 43-year-old woman with reported new lump in the subareolar tissue right breast noted on recent breast examination. This is patient's baseline study. BILATERAL MAMMOGRAM: CC, MLO and ML views of both breasts are obtained as are implant displaced views in CC and MLO projection with tomosynthesis. RIGHT BREAST: A prominent subpectoral saline implant is identified. With implant displaced projections, there is heterogeneously dense glandular tissue and several scattered dystrophic calcifications present. Several circumscribed masses are noted in the subareolar tissue inferiorly. They have a circumscribed border. LEFT BREAST: Subpectoral saline implant identified with normal contour. With implant displaced projections, heterogeneously dense glandular tissue and scattered dystrophic calcifications are present, many having lucent centers. No distortion or mass identified. RIGHT BREAST ULTRASOUND: Physical examination of the right breast revealed a smoothly marginated yet mobile mass in the subareolar tissue at 5 o'clock. With ultrasound, at least four cysts were identified in this location. One cyst measured 1.4 x 0.9 cm, a second cyst 1.3 x 0.6 cm, a third cyst 1.4 x 1.2 cm, and a small cyst with septation at 6 o'clock measuring 7 to 8 mm. Adjacent fibroglandular tissue appeared unremarkable as did implant contour. No distortion or shadowing clearly identified. IMPRESSION: Right breast: BI-RADS 2: Benign. 1. Multiple anechoic cysts are identified correlating to the circumscribed masses seen mammographically in the subareolar tissue. One small cyst at 6 o'clock has an internal septation and may represent a chronic cyst or less likely a small parenchymal lymph node. Overall pattern appears benign. Adjacent glandular tissue appears normal with implant in satisfactory position. Follow-up mammogram recommended in 12 months. Left breast: BI-RADS 2: Benign. 1. Subpectoral saline implant identified with normal contour. Dystrophic calcifications anteriorly in the left breast have a benign appearance. Follow-up mammogram in 12 months recommended. These findings were reviewed with the patient on 11 July 2014. Monthly self breast examination was encouraged. Patient understands that should the current lumps increase in size, repeat ultrasound could be obtained. OVERALL ASSESSMENT: Benign. GH:[facility] Radiologist: JIMMY HOPKINS MD Attending: IVONE COYLE Requesting: IVONE COYLE Requesting Requesting ID: [id number] Attending Attending ID: [id number] Completed Time: 07/11/2014 1:06 PM Dictated Time: 07/11/2014 2:03 PM Transcribed Time: 07/11/2014 2:57 PM Signed by: JIMMY HOPKINS MD on 07/11/2014 3:56 PM Report To 1 ID: Report To 1 Name: , Report To 1 FAX: Report To 2 ID: Report To 2 Name: , Report To 2 FAX: Report To 3 ID: Report To 3 Name: , Report To 3 FAX: NextGen Order #: Procedure Note Provider, MD Odilia - 01/02/2017 Digital diagnostic mammogram with implants and implant displaced projections with tomosynthesis and CAD as well as right breast ultrasound 11 July 2014 HISTORY: 43-year-old woman with reported new lump in the subareolar tissue right breast noted on recent breast examination. This is patient's baseline study. BILATERAL MAMMOGRAM: CC, MLO and ML views of both breasts are obtained as are implant displaced views in CC and MLO projection with tomosynthesis. RIGHT BREAST: A prominent subpectoral saline implant is identified. With implant displaced projections, there is heterogeneously dense glandular tissue and several scattered dystrophic calcifications present. Several circumscribed masses are noted in the subareolar tissue inferiorly. They have a circumscribed border. LEFT BREAST: Subpectoral saline implant identified with normal contour. With implant displaced projections, heterogeneously dense glandular tissue and scattered dystrophic calcifications are present, many having lucent centers. No distortion or mass identified. RIGHT BREAST ULTRASOUND: Physical examination of the right breast revealed a smoothly marginated yet mobile mass in the subareolar tissue at 5 o'clock. With ultrasound, at least four cysts were identified in this location. One cyst measured 1.4 x 0.9 cm, a second cyst 1.3 x 0.6 cm, a third cyst 1.4 x 1.2 cm, and a small cyst with septation at 6 o'clock measuring 7 to 8 mm. Adjacent fibroglandular tissue appeared unremarkable as did implant contour. No distortion or shadowing clearly identified. IMPRESSION: Right breast: BI-RADS 2: Benign. 1. Multiple anechoic cysts are identified correlating to the circumscribed masses seen mammographically in the subareolar tissue. One small cyst at 6 o'clock has an internal septation and may represent a chronic cyst or less likely a small parenchymal lymph node. Overall pattern appears benign. Adjacent glandular tissue appears normal with implant in satisfactory position. Follow-up mammogram recommended in 12 months. Left breast: BI-RADS 2: Benign. 1. Subpectoral saline implant identified with normal contour. Dystrophic calcifications anteriorly in the left breast have a benign appearance. Follow-up mammogram in 12 months recommended. These findings were reviewed with the patient on 11 July 2014. Monthly self breast examination was encouraged. Patient understands that should the current lumps increase in size, repeat ultrasound could be obtained. OVERALL ASSESSMENT: Benign. GH:[facility] Radiologist: JIMMY HOPKINS MD Attending: IVONE COYLE Requesting: IVONE COYLE Requesting Requesting ID: [id number] Attending Attending ID: [id number] Completed Time: 07/11/2014 1:06 PM Dictated Time: 07/11/2014 2:03 PM Transcribed Time: 07/11/2014 2:57 PM Signed by: JIMMY HOPKINS MD on 07/11/2014 3:56 PM Report To 1 ID: Report To 1 Name: , Report To 1 FAX: Report To 2 ID: Report To 2 Name: , Report To 2 FAX: Report To 3 ID: Report To 3 Name: , Report To 3 FAX: NextGen Order #: us Historical Provider MD ARIAS MAMMO PROCEDURES Lilly l Result from Last 3 Months or Most Recently Relevant to Health Maintenance Insurance IDMS Member Subscriber Plan / Payer (Ef fective 2022-Present) Name:Kay Nunes Relation to Subscriber:Self Name:Kay Nunes Payer ID:[id number] Group ID:Not on file Type:[place]ICAID [place] Address: [address] [place] [id number] IDPA Care Teams Passenger Coach Driver Relationship Specialty Start Date End Date No, Physician PCP - General 06/16/22
--- OUTSIDE RECORDS SUMMARY | 2024-12-24 11:39 | XMS_ITS | Clinical Summary ---
Author Organization [facility] [address] Address [address] [place] [address] Phone Care Team Providers Care Muck Boss Name Role Phone No, Physician Primary Care Provider [phone] Allergies No known active allergies Medications albuterol [...] Active Active Problems No known active problems Surgical History Surgery Date Site/Laterality Comments FOOT TENDON SURGERY AUGMENTATION MAMMAPLASTY FINGER SURGERY BREAST LUMPECTOMY Medical History Medical History Date Comments Asthma Breast cancer (HCC) Social History Tobacco Use Types Packs/Day Years Used Date Smoking Tobacco: Former Cigarettes Smokeless Tobacco: Never Tobacco Cessation:Counseling Given: Not Answered Personal Safety Answer Date Recorded Getting School Help Needed Not on file 08/25 Comments No Sex and Gender Information Value Date Recorded Sex Assigned at Not on file Legal Sex Female 8:46 PM [employer] Gender Identity Not on file Sexual Orientation Not on file Occupation Industry Job Start Date Job End Date Self Employed Not on file Not on file Not on file Obstetrics History Para Term AB IAB SAB Ectopic Multiple Livin g Live Births 2 2 2 2 2 Date Outcome GA Total Labor Labor/2nd/3rd Weight Sex Type Anes PTL Stephani A1 A5 Name Clin 1992 Term 3.487 kg (7 lb 11 oz) F Vag-S pont Living 1994 Term 3.289 kg (7 lb 4 oz) F Vag-S pont Living Last Filed Vital Signs Vital Sign Reading [...] 06/23/2023 1:31 PM CDT Plan of Treatment Health Maintenance Due Date Last Done Comments Colon Cancer Screening-Colonoscopy 1970 Depression Screening 1970 Hepatitis C Screening 1970 Hepatitis B Screening 1988 Pneumococcal vaccine <65 (1 of 2 - PCV) 1989 Zoster Vaccine (1 of 2) 1989 Cervical Cancer Screening 06/20/2023 06/20/2022 Breast Cancer Screening-Mammogram 05/11/2024 023, 07/11/2014 Covid-19 Vaccine ( season) 2024 07/25/2022, 12/31/2020, 12/10/2020 Regular Well Visit/Exam 18-64 06/23/2024 06/23/2023, 06/20/2022 Influenza Vaccine (Season Ended) 2025 07/25/20 22 DTaP/Tdap/Td Vaccine (2 - Td or Tdap) 06/05/2027 Procedures Procedure Name Priority Date/Time Associated Diagnosis [...] CDT 06/20/2022 11:32 AM CDT Narrative PATHOLOGY - 06/24/2022 1:34 PM CDT [facility] Department of Pathology [address] [place], [place] [id number] Final Report with Addendum Note to Patients: [...] and explain the details. Patient Name: KAY GLASER Address: [address] [place] [address] Gender: F : 1970 (Age: 51) Service: Laboratory Location: N : [id number] [facility] #: [id number] Patient Type: SPECIMEN Taken: 06/20/2022 Received: 06/20/2022 [...] 59, 66 and 68. Test performed utilizing Gen-Probe Aptima assay. ARIS Cain(ASCP)Report Electronically Reviewed and [...] determined by the Surgical Pathology Department at [facility] as part of an ongoing quality assurance specialist program and in compliance with federally [...] characteristics determined by the Surgical Pathology Department [facility]. It has not been cleared or approved by the [place]. [place]. Food and Drug Administration. Marisel Israel DO LAB CYTOLOGY ORDERABLES Final Result PATHOLOGY [address] [place] [address] * Diagnostic Mammogram Bilateral W Ash W [...] COYLE Requesting: IVONE COYLE Requesting Requesting ID: [id number] Attending Attending ID: [id number] Completed Time: 07/11/2014 1:06 PM Dictated Time: [...] ultrasound could be obtained. OVERALL ASSESSMENT: Benign. GH:[facility] Radiologist: JIMMY HOPKINS MD Attending: IVONE COYLE Requesting: IVONE COYLE Requesting Requesting ID: [id number] Attending Attending ID: [id number] Completed Time: 07/11/2014 1:06 PM Dictated Time: [...] Report To 3 FAX: NextGen Order #: Historical Provider MD ARIAS MAMMO PROCEDURES Lilly l Result from Last 3 Months or Most Recently Relevant to Health Maintenance Insurance IDPA IDPA Care Teams Muck Boss Relationship Specialty Start Date End Date No, Physician PCP - General 06/16/22
== END 2024-12-24 10:34 | disposition home or self-care (01) ==
PROVIDERS: PCP Physician Assistant; Visit Provider Physician Assistant
DX: Z12.2 Encounter for screening for malignant neoplasm of respiratory organs (principal); J43.9 Emphysema, unspecified; Z87.891 Personal history of nicotine dependence
CPT/HCPCS: 71271